=== PATIENT | female | born 1945 | race Caucasian/White ===

== ENCOUNTER 2016-07-19 22:30 | Emergency (ER) | payer MEDICARE, OTHER ==
[~2016-07-19 22:30] MED LIST: ASPI-973 PO; CHOL-9 PO; DILT240C89 PO; GLPZ5T PO; IBUP800T28 PO; INSLIS SUBQ; INSU100I18 SUBQ; INSU100V7 SUBQ; LOSA50TA37 PO; METF500T4 PO; SPIR50TA2 PO
[2016-07-19 22:39] VITALS: BP 159/66; PULSE 56; RESP 18; O2SAT 98
[2016-07-19 23:14] LABS: Mean Corpuscular Hemoglobin 30.6 pg (27.0-35.0)
[2016-07-19 23:18] LABS: Mean Corpuscular Volume 92.2 fL (81-100); Platelet Count 254 bil/L (150-400)
[2016-07-19 23:35] LABS: BASOPHILS % (AUTO) 0 % (0-3); EOSINOPHILS % (AUTO) 1 % (0-5); MONOCYTES % (AUTO) 2 % (4-12); NEUTROPHILS % (AUTO) 60 % (40-74)
[2016-07-19 23:41] LABS: Magnesium 1.6 mg/dL (1.6-2.6)
--- NOTE | 2016-07-20 00:08 | ED.REPORT ---
HPI-Abd Pain F 40 and Over Date of Service Jul 20, 2016 ED Provider: Manuel Schuler MD Patient is a 70 year old female with a history of CLL, diabetes mellitus, hypertension, and renal insufficiency who presents to the ED complaining of abdominal pain onset 5pm this evening. Her pain is most severe in her lower abdomen and radiates into her back. She reports associated chills, subjective fever, and nausea but denies vomiting, diarrhea, hematochezia, or dysuria. She reports prior appendectomy but denies a history of cholecystectomy or other abdominal surgeries. The patient reports a history of diverticulosis but denies diverticulitis. Nursing Notes Stated Complaint: ABDOMINAL PAIN AND BACK PAIN Chief Complaint: Female Abdominal Pain Nursing Notes Reviewed: Yes Allergies: Coded Allergies: No Known Allergies (Verified Allergy, Unknown, 07/19/16) Scheduled Aspirin (Aspirin) 81 Mg Tablet 81 MG PO DAILY Cholecalciferol (Vitamin D3) (Vitamin D3) 10,000 Unit Tablet 10,000 UNIT PO DAILY Diltiazem ER (Diltiazem ER) 240 Mg Cap.er.24h 240 MG PO BID Glipizide (Glipizide) 5 Mg Tablet 5 MG PO AM Insulin Glargine (Lantus U100 Insulin Vial) 100 Unit/Ml Vial 30 UNIT SUBQ QPM- INSULIN Insulin Human Lispro (HumaLOG U100 Insulin Vial) 100 Unit/Ml Unit 4 UNIT SUBQ TID-INSULIN Blood Sugar Lispro Correction <151 0 units 151-175 1 unit 176-200 2 units 201-225 3 units 226-250 4 units 251-275 5 units 276-300 6 units 301-325 7 units 326-350 8 units 351-375 9 units 376-400 10 units >400 12 units Check blood sugars before meals and at bedtime. Use correction factor only before meals. Insulin Lispro (HumaLOG U100 Insulin Pen) 100 Unit/1 Ml Insuln.pen 0 SUBQ SLIDING SCALE Blood Sugar Lispro Correction <151 0 units 151-175 1 unit 176-200 2 units 201-225 3 units 226-250 4 units 251-275 5 units 276-300 6 units 301-325 7 units 326-350 8 units 351-375 9 units 376-400 10 units >400 12 units Check blood sugars before meals and at bedtime. Use correction factor only before meals. Losartan Potassium (Losartan Potassium) 50 Mg Tablet 50 MG PO DAILY Metformin (Metformin) 500 Mg Tablet 500 MG PO BID Spironolactone (Spironolactone) 50 Mg Tablet 50 MG PO DAILY Scheduled PRN Ibuprofen (Ibuprofen) 800 Mg Tablet 800 MG PO PRN PRN PRN For Pain General Time Seen by MD: 00:06 Chief Complaint Abdominal pain Hx Obtained From: Patient Arrived By: Walk-in Sudden in Onset?: No Onset Occurred: 5 - 8 hours ago Symptom Duration: Since onset Progression since Onset: Gradually worsening Location: : Abdomen lower Quality: Painful Severity: Current: Moderate Severity: Maximum: Severe Recent Healthcare: No recent doctor visit, No recent hospitalization Similar Sx Previous: No Past Medical History Past Medical History 1. 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 2. Diabetes. 3. Hypertension. 4. Renal insufficiency. 5. Depression. 6. Hospitalized May 2011 for a presyncopal episode with rhabdomyolysis, possibly a complication of hypoglycemia. 7. Hypertension, controlled. 8. History of UTI with sepsis associated with that. 9. Kidney stones Past Surgical History Reports: Appendectomy, Tonsillectomy, Denies: Cholecystectomy Smoking History Never Smoker Social History Other Social History: Good social support, Local resident Ambulatory Status Independent Review of Systems Constitutional: Reports: Chills, Fever (subjective) GI: Reports: Abdominal pain, Nausea, Denies: Bloody/tarry stool, Diarrhea, Hematochezia, Vomiting Female: Denies: Dysuria Musculoskeletal: Reports: Back pain Complete sys rev & neg: except as marked. Physical Exam Vital Signs Vital Signs (First) Date Time Temp Pulse Resp B/P Pulse Ox O2 Delivery O2 Flow Rate FiO2 07/19/16 22:39 36.2 56 18 159/66 98 Room Air Initial VS: Reviewed, Vital signs normal Head / Eyes: Atraumatic, Normocephalic, PERRL ENT: Conjunctiva normal, No scleral icterus Neck: Supple, Full range of motion Extremities: Vascular intact, Neuro intact, No swelling Skin: Warm, Dry, No cyanosis Neurologic: Alert, Oriented, Nonfocal Psychiatric: Mood/affect normal, Behavior normal, Normal thought content General/Constitutional: Awake, Alert Appearance / Presentation: Positive: In pain, Pale Respiratory / Chest: Breath sounds NL, Breath sounds = bilat, No respiratory distress, No rales, No rhonchi, No wheezing Cardiovascular: Heart rate NL, Regular rhythm, Heart sounds NL Abdomen: Soft, BS normoactive Tenderness/Guarding/Rebound: Positive: Tender diffuse Bowel Sounds / Distention: Negative: Bowel sounds tympanitic Back: No CVA tenderness Interpretation & Diagnostics Lab Results Interpretation Result Diagram: 07/19/16 2300 07/19/16 2300 Test 07/19/16 23:00 07/19/16 23:06 White Blood Count 26.8th/mm3 (3.8-10.1) Red Blood Count 4.74mil/mm3 (3.90-5.20) Hemoglobin 14.5g/dL (12.0-15.6) Hematocrit 43.7% (35.0-46.0) Mean Corpuscular Volume 92.2fL (81-100) Mean Corpuscular Hemoglobin 30.6pg (27.0-35.0) Mean Corpuscular Hemoglobin Concent 33.2% (32.0-37.0) Red Cell Distribution Width 13.9% (12.3-15.4) Platelet Count 254bil/L (150-400) Neutrophils (%) (Auto) 60% (40-74) Lymphocytes (%) (Auto) 32% (14-46) Monocytes (%) (Auto) 2% (4-12) Eosinophils (%) (Auto) 1% (0-5) Basophils (%) (Auto) 0% (0-3) Band Neutrophils % 5% (1-5) Sodium Level 137mEq/L (134-144) Potassium Level 4.6mEq/L (3.5-5.2) Chloride Level 96mEq/L (97-108) Carbon Dioxide Level 22mmol/L (18-29) Blood Urea Nitrogen 32mg/dL (8-27) Creatinine 0.87mg/dL (0.57-1.00) Estimat Glomerular Filtration Rate 92mL/min (>59) Glucose Level 219mg/dL (60-99) Lactic Acid Level 0.2mmol/L (0.4-2.0) Calcium Level 10.0mg/dL (8.5-10.1) Magnesium Level 1.6mg/dL (1.6-2.6) Total Bilirubin 0.2mg/dL (0.0-1.2) Aspartate Amino Transf (AST/SGOT) 21U/L (0-50) Alanine Aminotransferase (ALT/SGPT) 19U/L (0-32) Alkaline Phosphatase 60U/L (25-165) Total Protein 7.2g/dL (6.4-8.4) Albumin 4.2g/dL (3.4-5.0) Lipase 28U/L (13-60) Hold Guerra Top Tube Received (Received) Hold Urine Received (Received) Lab Results Interpretation: Elevated white count related to chronic leukemia. Procedures Lab Results Interpretation Result Diagram: 07/19/16 2300 07/19/16 2300 Test 07/19/16 23:00 07/19/16 23:06 White Blood Count 26.8th/mm3 (3.8-10.1) Red Blood Count 4.74mil/mm3 (3.90-5.20) Hemoglobin 14.5g/dL (12.0-15.6) Hematocrit 43.7% (35.0-46.0) Mean Corpuscular Volume 92.2fL (81-100) Mean Corpuscular Hemoglobin 30.6pg (27.0-35.0) Mean Corpuscular Hemoglobin Concent 33.2% (32.0-37.0) Red Cell Distribution Width 13.9% (12.3-15.4) Platelet Count 254bil/L (150-400) Neutrophils (%) (Auto) 60% (40-74) Lymphocytes (%) (Auto) 32% (14-46) Monocytes (%) (Auto) 2% (4-12) Eosinophils (%) (Auto) 1% (0-5) Basophils (%) (Auto) 0% (0-3) Band Neutrophils % 5% (1-5) Sodium Level 137mEq/L (134-144) Potassium Level 4.6mEq/L (3.5-5.2) Chloride Level 96mEq/L (97-108) Carbon Dioxide Level 22mmol/L (18-29) Blood Urea Nitrogen 32mg/dL (8-27) Creatinine 0.87mg/dL (0.57-1.00) Estimat Glomerular Filtration Rate 92mL/min (>59) Glucose Level 219mg/dL (60-99) Lactic Acid Level 0.2mmol/L (0.4-2.0) Calcium Level 10.0mg/dL (8.5-10.1) Magnesium Level 1.6mg/dL (1.6-2.6) Total Bilirubin 0.2mg/dL (0.0-1.2) Aspartate Amino Transf (AST/SGOT) 21U/L (0-50) Alanine Aminotransferase (ALT/SGPT) 19U/L (0-32) Alkaline Phosphatase 60U/L (25-165) Total Protein 7.2g/dL (6.4-8.4) Albumin 4.2g/dL (3.4-5.0) Lipase 28U/L (13-60) Hold Guerra Top Tube Received (Received) Hold Urine Received (Received) CT Abd / Pelvis Interpretation CONCLUSION: Suggestion of wall thickening of the small bowel left mid abdomen nondistention versus acute enteritis. Colonic diverticulosis without evidence of acute diverticulitis. Radiologist: Aurora Miller MD 07/20/2016 - 2:59:56 AM PDT Study type: Abdominal CT IV contrast Interpretation / Wet Read by: Interpret - Radiologist Re-Eval/Medical Decision Med Decision/Clinical Course 70-year-old female with severe abdominal pain. Her white count is elevated but it is in the same range that it is chronically. CT scan shows nonspecific enteritis. She has had no diarrhea or fever. Case was discussed with Dr. Leary. She will be discharged home. If she develops diarrhea she will need further evaluation with stool sampling. She is being discharged in a much improved condition. Source of Hx: Old records Re-Evaluation/Progress #1: Time of Eval: 03:31 Re-Evaluation/Progress Note: Rechecked the patient. Discussed the results of her CT scan and labs. Will discuss the results with the internal medicine physician. Re-Evaluation/Progress #2: Time of Eval: 04:00 Re-Evaluation/Progress Note: Patient understands and agrees with the plan to be discharged home. Discharge instructions and follow-up discussed. All questions were addressed. Return to the ED warnings given. Consultation : Referral / Consult Name: Delmy Leary DO Consulted With: Hospitalist Call Returned at: 03:45 Internet Marketing Manager: Agrees with plan Note: Spoke with Dr. Leary about the patient's case. She states not to treat enteritis unless she is toxic. This means diarrhea or bloody stool. Treat based on culture. Counseled Regarding: Diagnosis, Lab results, Need for follow-up, When/why to return to ED Discharge & Departure Primary Impression: Enteritis Disposition: Home Discharge Condition All VS Reviewed: Yes Condition: Stable Patient Instructions: Gastroenteritis (ED) Additional Instructions: Your CT scan shows evidence of enteritis, nonspecific infection or inflammation of the intestine. If you become toxic with fever or if you develop diarrhea, especially bloody diarrhea, then you will need further evaluation including stool culture. Antibiotics are only helpful in some causes of this and may in fact be harmful, so we need a diarrheal stool diagnosis before starting antibiotics. Follow up with Dr. sims on Friday as needed or return to the emergency room over the weekend. Call me at [phone] between the hours of 9 PM and 6 AM for the next couple of nights if you have any concerns or questions. Referrals: Juani Desai MD (PCP) Scribe Attestation Portions of this note were transcribed by Kamila Adler. I, Dr. Schuler personally performed the history, physical exam and medical decision-making; I reviewed and confirmed the accuracy of the information in the transcribed note. Signed by: Gracie Sierra, 07/19/2016 0519 copies to: Juani Desai MD, Howard L MD Jul 20, 2016 00:08 Kamila Adler Jul 20, 2016 00:19
[2016-07-20] MEDS ORDERED: 0.9% Sodium Chloride 1,000 ML IV ONE (00:10)
[2016-07-20] MEDS ORDERED: Ondansetron 2 mg/mL 2 mL Inj IV PRN (00:10)
[2016-07-20] MEDS: HYDROmorphone 0.5 mg/0.5 mL iSecure Syringe IVPUSH PRN ×2 (00:23→01:14)
[2016-07-20 04:19] VITALS: BP 137/69; PULSE 68; RESP 17; O2SAT 96
--- NOTE | 2016-07-20 06:27 | DRSVH ---
PROCEDURE: CT ABDOMEN AND PELVIS WITH CONTRAST ([id number]) INDICATIONS: Severe Abd pain, WBC 26,800 TECHNIQUE: After the administration of intravenous contrast, 5 mm thick sections acquired from the diaphragm to the symphysis. 5 mm coronal and sagittal reformats were acquired. For radiation dose reduction, the following was used: automated exposure control, adjustment of mA and/or kV according to patient raul guerra. COMPARISON: [facility], CT, KUB - CT ([facility]), 04/24/2010, 19:35. FINDINGS: Image quality: Excellent. ABDOMEN: Lung bases: Lung bases are clear. Heart size is normal. Solid organs: Liver and spleen are normal in size and enhancement. Gallbladder is unremarkable. Bi liary system is non dilated. Pancreas enhances normally. No adrenal nodules. Kidneys demonstrate n ormal size and enhancement, without hydronephrosis. Peritoneum and bowel: Bowel loops demonstrate normal wall thickness and caliber. No free fluid or a ir. Colonic diverticula are present. Surgical changes are present at the rectosigmoid junction. Ther e is normal appearance of small bowel thickening noted in the distal segment. Nodes and vessels: No retroperitoneal or mesenteric adenopathy by size criteria. Aorta and inferior vena cava are normal in size. Miscellaneous: No ventral hernias. PELVIS: Genitourinary: Bladder wall thickness is normal. Miscellaneous: No inguinal hernias or adenopathy. Bones: No suspicious bony lesions. No vertebral body compression fractures. IMPRESSION: 1. Minimal appearance of questionable small bowel thickening within the mid abdomen. This could repre sent enteritis versus incomplete distention. 2. Diverticulosis. Dictated by: Shawanda Chowdhury M.D. on 07/20/2016 at 6:21 Approved by: Shawanda Chowdhury M.D. on 07/20/2016 at 6:26
== END 2016-07-20 04:03 | disposition home or self-care (01) ==
LOC: SED 22:30
DX: K52.9 Noninfective gastroenteritis and colitis, unspecified (principal); I10 Essential (primary) hypertension; E11.9 Type 2 diabetes mellitus without complications; Z79.4 Long term (current) use of insulin; Z79.82 Long term (current) use of aspirin; Z79.84 Long term (current) use of oral hypoglycemic drugs; Z90.49 Acquired absence of other specified parts of digestive tract
CPT/HCPCS: 36415; 74177; 80053; 83605; 83690; 83735; 85007; 85025; 87040; 96361; 96374; 96375; 99285; J1170; J2405; J7030; Q9967

== ENCOUNTER 2016-12-03 02:12 | Inpatient (IN) | payer MEDICARE, OTHER ==
[~2016-12-03] VITALS: Ht 167.6 cm; Wt 67.2 kg
[2016-12-03] VITALS (10 sets, daily range): BP systolic 97–158; BP diastolic 42–73; PULSE 50–93; RESP 16–22; O2SAT 93–100
[2016-12-03 02:32] LABS: Mean Corpuscular Hemoglobin 30.5 pg (27.0-35.0); Mean Corpuscular Volume 90.9 fL (81-100); Platelet Count 257 bil/L (150-400)
--- NOTE | 2016-12-03 02:35 | ED.REPORT ---
HPI-Abd Pain F 40 and Over Date of Service Dec 03, 2016 ED Provider: Gustavo Mitchell MD Pt is a 71 y/o female with a history of chronic lymphocytic leukemia, DM, hypertension, hypertension, and renal insufficiency who presents to the ED via EMS c/o diffuse abdominal pain onset 2300 last night. She states she has had similar symptoms previously, and rates the severity of her pain now at 9/10. Additional symptoms include dark stool for 3 days and increased gas. She denies fever, chills, diarrhea, melena, hematuria, or hematochezia. Nursing Notes Stated Complaint: ABDOMINAL PAIN Chief Complaint: Female Abdominal Pain Nursing Notes Reviewed: Yes Allergies: Coded Allergies: No Known Allergies (Verified Allergy, Unknown, 12/03/16) Scheduled Aspirin (Aspirin) 81 Mg Tablet 81 MG PO DAILY Cholecalciferol (Vitamin D3) (Vitamin D3) 10,000 Unit Tablet 10,000 UNIT PO DAILY Diltiazem ER (Diltiazem ER) 240 Mg Cap.er.24h 240 MG PO BID Glipizide (Glipizide) 5 Mg Tablet 5 MG PO AM Insulin Glargine (Lantus U100 Insulin Vial) 100 Unit/Ml Vial 30 UNIT SUBQ QPM- INSULIN Insulin Human Lispro (HumaLOG U100 Insulin Vial) 100 Unit/Ml Unit 4 UNIT SUBQ TID-INSULIN Blood Sugar Lispro Correction <151 0 units 151-175 1 unit 176-200 2 units 201-225 3 units 226-250 4 units 251-275 5 units 276-300 6 units 301-325 7 units 326-350 8 units 351-375 9 units 376-400 10 units >400 12 units Check blood sugars before meals and at bedtime. Use correction factor only before meals. Insulin Lispro (HumaLOG U100 Insulin Pen) 100 Unit/1 Ml Insuln.pen 0 SUBQ SLIDING SCALE Blood Sugar Lispro Correction <151 0 units 151-175 1 unit 176-200 2 units 201-225 3 units 226-250 4 units 251-275 5 units 276-300 6 units 301-325 7 units 326-350 8 units 351-375 9 units 376-400 10 units >400 12 units Check blood sugars before meals and at bedtime. Use correction factor only before meals. Losartan Potassium (Losartan Potassium) 50 Mg Tablet 50 MG PO DAILY Metformin (Metformin) 500 Mg Tablet 500 MG PO BID Spironolactone (Spironolactone) 50 Mg Tablet 50 MG PO DAILY Scheduled PRN Ibuprofen (Ibuprofen) 800 Mg Tablet 800 MG PO PRN PRN PRN For Pain General Time Seen by MD: 02:34 Chief Complaint Abdominal pain Hx Obtained From: Patient Arrived By: Ambulance Sudden in Onset?: Yes Onset Occurred: 1 - 4 hours ago Symptom Duration: Constant Location: : Diffuse Quality: Painful Severity: Current: Pain level 9 out of 10 Severity: Maximum: Severe Recent Healthcare: Recent doctor visit Similar Sx Previous: Yes Past Medical History Past Medical History 1. 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 2. Diabetes. 3. Hypertension. 4. Renal insufficiency. 5. Depression. 6. Hospitalized May 2011 for a presyncopal episode with rhabdomyolysis, possibly a complication of hypoglycemia. 7. Hypertension, controlled. 8. History of UTI with sepsis associated with that. 9. Kidney stones Past Surgical History Reports: Appendectomy, Tonsillectomy Smoking History Never Smoker Social History Other Social History: Good social support, Local resident Ambulatory Status Independent Review of Systems Dark stool for 3 days Increased gas Constitutional: Denies: Chills, Fever GI: Reports: Abdominal pain, Denies: Diarrhea, Hematochezia, Melena Female: Denies: Hematuria Complete sys rev & neg: except as marked. Physical Exam Vital Signs Vital Signs (First) Date Time Temp Pulse Resp B/P Pulse Ox O2 Delivery O2 Flow Rate FiO2 12/03/16 02:19 36.4 50 16 158/47 98 Room Air Initial VS: Reviewed Head / Eyes: Atraumatic, Normocephalic Neck: Supple, Full range of motion Extremities: Vascular intact, Neuro intact, No swelling, No tenderness Skin: Warm, Dry, No cyanosis Neurologic: Alert, Oriented, Nonfocal Psychiatric: Mood/affect normal, Behavior normal, Normal thought content General/Constitutional: Awake, Alert Looks slightly dry Respiratory / Chest: Atraumatic, Breath sounds NL, Breath sounds = bilat, No respiratory distress Cardiovascular: Heart rate NL, Regular rhythm, Heart sounds NL Abdomen: Soft, BS normoactive Tenderness/Guarding/Rebound: Positive: Tender diffuse Back: Full range of motion, Non-tender Interpretation & Diagnostics Lab Results Interpretation Result Diagram: 12/03/16 0220 12/03/16 0220 Test 12/03/16 02:20 12/03/16 02:32 White Blood Count 22.6th/mm3 (3.8-10.1) Red Blood Count 4.63mil/mm3 (3.90-5.20) Hemoglobin 14.1g/dL (12.0-15.6) Hematocrit 42.1% (35.0-46.0) Mean Corpuscular Volume 90.9fL (81-100) Mean Corpuscular Hemoglobin 30.5pg (27.0-35.0) Mean Corpuscular Hemoglobin Concent 33.5% (32.0-37.0) Red Cell Distribution Width 13.8% (12.3-15.4) Platelet Count 257bil/L (150-400) Neutrophils (%) (Auto) 52% (40-74) Lymphocytes (%) (Auto) 35% (14-46) Monocytes (%) (Auto) 6% (4-12) Eosinophils (%) (Auto) 3% (0-5) Basophils (%) (Auto) 1% (0-3) Band Neutrophils % 2% (1-5) Hematology Comments Prothrombin Time 10.0sec (8.1-12.5) Prothromb Time International Ratio 0.94ratio Sodium Level 136mEq/L (134-144) Potassium Level 3.8mEq/L (3.5-5.2) Chloride Level 95mEq/L (97-108) Carbon Dioxide Level 22mmol/L (18-29) Blood Urea Nitrogen 24mg/dL (8-27) Creatinine 1.23mg/dL (0.57-1.00) Estimat Glomerular Filtration Rate 61mL/min (>59) Glucose Level 171mg/dL (60-99) Calcium Level 10.0mg/dL (8.5-10.1) Magnesium Level 1.8mg/dL (1.6-2.6) Total Bilirubin 0.3mg/dL (0.0-1.2) Aspartate Amino Transf (AST/SGOT) 19U/L (0-50) Alanine Aminotransferase (ALT/SGPT) 17U/L (0-32) Alkaline Phosphatase 53U/L (25-165) Total Protein 6.9g/dL (6.4-8.4) Albumin 4.1g/dL (3.4-5.0) Lipase 34U/L (13-60) Lactic Acid Level 1.2mmol/L (0.4-2.0) CT Abd / Pelvis Interpretation Conclusion: Lobulated gallbladder with areas of wall thickening. Ultrasound correlation is recommended. Mild extrahepatic biliary dilation, without an obstructing lesion seen. If there are clinical and labratory signs of biliary obstruction, an MRCP can be performed to further evaluate. Colonic diverticulosis without signs of diverticulitis. Study type: Abdominal CT IV contrast Interpretation / Wet Read by: Interpret - Radiologist Re-Eval/Medical Decision Med Decision/Clinical Course 71-year-old with CLL presents with an episode of abdominal pain in her upper abdomen. CT scanning shows a lobulated thickened gallbladder and dilatation of the common bile duct, but no dilatation of the pancreatic duct. No stone is seen definitively. LFTs are basically unremarkable. White count is elevated, with some bands noted. Unclear whether this is the result of infection or her underlying CLL. Begun with Zosyn pending culture. MRCP ordered for this morning. Ultrasound additionally will be helpful. Source of Hx: Old records Re-Evaluation/Progress : Time of Eval: 04:18 Re-Evaluation/Progress Note: Patient rechecked. Discussed plan for admission. Pt understands and agrees with plan. All questions addressed. Consultation : Referral / Consult Name: Ramon Romano MD Consulted With: Hospitalist Call Returned at: 05:00 [employer] Spray Unit Adjuster: Will see patient, Agrees with plan, Accepts admit Note: Discussed pt's case with hospitalist, Dr. Romano. He accepts admission. Counseled Regarding: Diagnosis, Lab results, Need for admission Discharge & Departure Primary Impression: Biliary colic Additional Impressions: CLL (chronic lymphocytic leukemia) Common bile duct dilatation Disposition: ADMITTED TO HOSPITAL Discharge Condition All VS Reviewed: Yes Condition: Stable Referrals: Juani Desai MD (PCP) Scribe Attestation Portions of this note were transcribed by Keli Metz. I, Dr. Mitchell, personally performed the history, physical exam and medical decision-making; I reviewed and confirmed the accuracy of the information in the transcribed note. copies to: Juani Desai MD, Christopher W MD Dec 03, 2016 02:35 Keli Metz Dec 03, 2016 02:42
[2016-12-03] MEDS ORDERED: 0.9% Sodium Chloride 1,000 ML IV ONE (02:37)
[2016-12-03] MEDS ORDERED: Ketorolac 15 mg/mL Inj IVPUSH ONE (02:40)
[2016-12-03] MEDS ORDERED: Ondansetron 2 mg/mL 2 mL Inj IVPUSH ONE (02:40)
[2016-12-03] MEDS ORDERED: HYDROmorphone 1 mg/mL Inj IVPUSH ONE (02:40)
[2016-12-03 02:48] LABS: BASOPHILS % (AUTO) 1 % (0-3); EOSINOPHILS % (AUTO) 3 % (0-5); MONOCYTES % (AUTO) 6 % (4-12); NEUTROPHILS % (AUTO) 52 % (40-74)
[2016-12-03 02:52] LABS: INR 0.94 ratio
[2016-12-03 03:11] LABS: Magnesium 1.8 mg/dL (1.6-2.6)
[2016-12-03] MEDS ORDERED: Piperacillin-Tazo 3.375 Gm Inj 3.375 GM in Dextrose 5% Minibag Plus 50 ML IV ONE (05:00)
[2016-12-03] MEDS ORDERED: Lactated Ringer's 1,000 ML IV SCH ×2 (05:02→15:31)
[2016-12-03] MEDS ORDERED: HYDROmorphone 1 mg/mL Inj IVPUSH PRN ×2 (05:05→15:35)
[2016-12-03] MEDS ORDERED: Ondansetron 2 mg/mL 2 mL Inj IVPUSH PRN ×3 (05:05→15:35)
[2016-12-03] MEDS ORDERED: Pantoprazole 40 mg ER24 Tablet PO SCH (07:30)
--- NOTE | 2016-12-03 07:50 | NUR ---
Arrival to Floor Patient arrives to [facility] from ED alert and oriented. Patent has some pain, but states that it is at a tolerable level. Denies nausea. Ordered IV fluids administered via patent left AC, care is ongoing.
[2016-12-03 08:37] LABS: APPEARANCE,URINE HAZY (CLEAR,HAZY); COLOR,URINE STRAW (YELLOW); OCCULT BLOOD,URINE TRACE (NEGATIVE); UROBILINOGEN,URINE NORMAL (NORMAL)
--- NOTE | 2016-12-03 10:48 | DRSVH ---
PROCEDURE: MR ABDOMEN MRCP INDICATIONS: duct dilatatiion, lobular gallbladder TECHNIQUE: Coronal HASTE through the abdomen, axial 2-D FLASH in- and [id number], and breath-hold T2 FSE with fat saturation through the biliary system and pancreas. Oblique coronal and axial thin-slice HASTE, radial thick-slab HASTE centered on the extrahepatic bile ducts. Intravenous secretin: Not requested. COMPARISON: [facility], CT, CT ABD PELVIS W CON, 12/03/2016, 3:41. FINDINGS: Image quality: Degraded by motion artifact. Pancreas and biliary system: There is mild intrahepatic biliary ductal dilatation. Common hepatic abhay t measures 11 mm. Common bile duct measures 13 mm. There is a probable 3 mm diameter filling defect w ithin the distal common bile duct. Pancreas is normal in morphology, without adjacent soft tissue rajesh ma. Pancreatic duct is normal in caliber, without developmental anomalies. Gallbladder demonstrates multiple calculi within its lumen, as well as wall thickening and pericholecystic fluid. Other solid organs: Liver and spleen are normal in size. No adrenal nodules. Both kidneys are norm al in size, without hydronephrosis. Nodes and vessels: No retroperitoneal or mesenteric adenopathy by size criteria. Aorta and inferior vena cava are normal in size. Bowel and peritoneum: Unenhanced bowel loops are normal in caliber. No free fluid. Lung bases: No basal pleural effusions. Heart size is normal. Bones and soft tissues: No ventral hernias. Bone marrow is of normal overall signal. IMPRESSION: 1. Cholelithiasis with evidence of cholecystitis. 2. Findings suggestive of a small distal common bile duct choledocholith associated with biliary duct al dilatation. Confirmation with ERCP or intraoperative cholangiography is recommended. 3. Findings discussed with Dr. Malloy 12.03.16 at 1045 hrs. Dictated by: Eloisa Echeverria M.D. on 12/03/2016 at 10:35 Approved by: Eloisa Echeverria M.D. on 12/03/2016 at 10:46
[2016-12-03] MEDS ORDERED: VIT1CAPS8 PO (11:32)
[2016-12-03] MEDS ORDERED: INSU100I18 SUBQ (11:36)
--- NOTE | 2016-12-03 12:00 | DRSVH ---
PROCEDURE: CT ABDOMEN AND PELVIS WITH CONTRAST ([id number]) INDICATIONS: abdo pain TECHNIQUE: After the administration of intravenous contrast, 5 mm thick sections acquired from the diaphragm to the symphysis. 5 mm coronal and sagittal reformats were acquired. For radiation dose reduction, the following was used: automated exposure control, adjustment of mA and/or kV according to patient austinz e. COMPARISON: [facility], MR, MR ABD MRCP, 12/03/2016, 9:28. [facility], CT, C T ABD PELVIS W CON, 07/20/2016, 2:18. FINDINGS: Image quality: Excellent. ABDOMEN: Lung bases: Lung bases are clear. Heart size is normal. Solid organs: Liver and spleen are normal in size. 3 mm splenic low attenuation focus is unchanged Gallbladder demonstrates a lobulated appearance with areas of mild wall thickening. Gallstones are fa intly visible. Extrahepatic biliary system demonstrates mild prominence measuring 14 mm. Pancreas en hances normally. There is mildly thickened and nodular appearance of the left adrenal gland, unchange d. Kidneys demonstrate normal size and enhancement, without hydronephrosis. Peritoneum and bowel: Bowel loops demonstrate normal wall thickness and caliber. No free fluid or a ir. Nodes and vessels: No retroperitoneal or mesenteric adenopathy by size criteria. Aorta and inferior vena cava are normal in size. Miscellaneous: No ventral hernias. PELVIS: Genitourinary: Bladder wall thickness is normal. Miscellaneous: No inguinal hernias or adenopathy. Bones: No suspicious bony lesions. No vertebral body compression fractures. IMPRESSION: 1. Lobulated gallbladder with areas of mild wall thickening and faintly visible stones. In addition, there is a mild prominence of extrahepatic biliary dilation measuring approximately 14 mm. No definit edson source of obstruction is identified. However, further evaluation with ultrasound/MRCP is recommen ded, as cholecystitis and/or choledocholithiasis cannot be excluded. Dictated by: Shawanda Chowdhury M.D. on 12/03/2016 at 11:51 Approved by: Shawanda Chowdhury M.D. on 12/03/2016 at 11:58
[2016-12-03] MEDS ORDERED: Alum-Mag Hydrox-Simeth 30 mL Suspension PO PRN (12:05)
[2016-12-03] MEDS ORDERED: Polyethylene Glycol (PEG) 17 Gm Powder PO PRN (12:05)
--- NOTE | 2016-12-03 12:08 | NUR ---
Case Management: [facility] delivered and charted. Signed original placed in chart. Copy left at bedside. Kathy Yung RN
[2016-12-03] MEDS ORDERED: Glycopyrrolate 0.2 MG/ML 1mL Inj ONE (12:26)
[2016-12-03] MEDS ORDERED: Rocuronium 10 mg/mL 5 mL Inj ONE (12:26)
[2016-12-03] MEDS ORDERED: Neostigmine 1 mg/mL 10 mL Inj ONE (12:26)
[2016-12-03] MEDS ORDERED: Ondansetron 2 mg/mL 2 mL Inj ONE (12:26)
[2016-12-03] MEDS ORDERED: fentaNYL-PF 50 mCg/mL 2 mL Inj ONE (12:26)
[2016-12-03] MEDS ORDERED: Propofol 10,000 mCg/mL 20 mL Inj ONE (12:26)
[2016-12-03 13:24] LABS: BASOPHILS % (AUTO) 0.1 % (0-3); EOSINOPHILS % (AUTO) 0 % (0-5); MONOCYTES % (AUTO) 6.4 % (4-12); Mean Corpuscular Volume 91.9 fL (81-100); NEUTROPHILS % (AUTO) 65.9 % (40-74); Platelet Count 211 bil/L (150-400)
--- NOTE | 2016-12-03 13:43 | NUR ---
Social Work: Initial Assessment/Multidisciplinary Rounds D: EMR reviewed. Please see Initial Assessment linked to this note for more information. Pt is a 71 year old female admitted [place] for cholecystitis biliary duct dilation per H&P. Pt's insurance is Medicare and [employer]. PCP is Juani Desai MD. Pt discussed in multidisciplinary rounds, surgery to consult. No SW needs identified at this time. SW met with pt at bedside to conduct initial assessment. Pt was alert and oriented x3. SW explained role and wrote phone number on white board. SW provided [facility] Discharge Planning Checklist and encouraged pt to contact SW for any discharge planning questions. Cynthia, daughter, is pt's designated personal banker for discharge planning. [facility] [place]. Pt is independent with all ADLs at baseline. Pt is active in the community and has good support from her daughter Cynthia. Pt uses no DME at baseline, but has a cane and walker available for use at discharge. Pt drives. Pt has no HH or SNF history. Pt has no LTC or VA benefits. Pt has DPOA on file, pt's daughter is DPOA. Pt is likely to d/c home with daughter to transport via POV. SW will continue to follow. A: Pt who is independent at baseline and has the capacity for self-care. P: Pt anticipated to discharge home with daughter to transport via POV when medically stable. No SW needs identified, no MD orders received at this time. SW will continue to follow for needs until time of discharge. LINDA Logan Addendum: 12/03/16 at 1349 by ELZA CHUN Amended: Links added.
--- NOTE | 2016-12-03 14:11 | PCM.HPMED ---
Subjective Date of Service Dec 03, 2016 Primary Provider: Admitting Physician: Ramon Romano MD Primary Care Physician: Juani Desai MD Attending Physician: Ramon Romano MD Chief Complaint: Abdominal pain History of Present Illness: 71 year old female with past medical history as noted below and notable for favorable prognosis chronic lymphocytic leukemia presents with acute onset of abdominal pain since about 11PM, about 6 hours after her dinner, last night. She denies any associated nausea, vomiting, fever, or chills with this. She has been having some loose stools in the past couple of days that has been occasionally melanotic appearing. The pain across her abdomen and to the right upper flank. She reports having lost about 20-30 lbs over the past 3 years and review of systems is otherwise negative. In the ED she has received a dose of IV Zosyn Review of Systems: Constitutional: Negative, except as otherwise mentioned in the history above. Ophthalmologic: Negative, except as otherwise mentioned in the history above. Cardiovascular: Negative, except as otherwise mentioned in the history above. Respiratory: Negative, except as otherwise mentioned in the history above. Gastrointestinal: Negative, except as otherwise mentioned in the history above. Genitourinary: Negative, except as otherwise mentioned in the history above. Musculoskeletal: Negative, except as otherwise mentioned in the history above. Neurological: Negative, except as otherwise mentioned in the history above. Psychiatric: Negative, except as otherwise mentioned in the history above. Hematologic/Lymphatic: Negative, except as otherwise mentioned in the history above. Allergic/Immunologic: Negative, except as otherwise mentioned in the history above. Allergies Coded Allergies: No Known Allergies (Verified Allergy, Unknown, 12/03/16) Home Medications Scheduled Aspirin (Aspirin) 81 Mg Tablet 81 MG PO DAILY Cholecalciferol (Vitamin D3) (Vitamin D3) 10,000 Unit Tablet 10,000 UNIT PO DAILY Diltiazem ER (Diltiazem ER) 240 Mg Cap.er.24h 240 MG PO BID Glipizide (Glipizide) 5 Mg Tablet 5 MG PO AM Insulin Glargine (Lantus U100 Insulin Vial) 100 Unit/Ml Vial 30 UNIT SUBQ QPM- INSULIN Insulin Human Lispro (HumaLOG U100 Insulin Vial) 100 Unit/Ml Unit 4 UNIT SUBQ TID-INSULIN Blood Sugar Lispro Correction <151 0 units 151-175 1 unit 176-200 2 units 201-225 3 units 226-250 4 units 251-275 5 units 276-300 6 units 301-325 7 units 326-350 8 units 351-375 9 units 376-400 10 units >400 12 units Check blood sugars before meals and at bedtime. Use correction factor only before meals. Insulin Lispro (HumaLOG U100 Insulin Pen) 100 Unit/1 Ml Insuln.pen 0 SUBQ SLIDING SCALE Blood Sugar Lispro Correction <151 0 units 151-175 1 unit 176-200 2 units 201-225 3 units 226-250 4 units 251-275 5 units 276-300 6 units 301-325 7 units 326-350 8 units 351-375 9 units 376-400 10 units >400 12 units Check blood sugars before meals and at bedtime. Use correction factor only before meals. Losartan Potassium (Losartan Potassium) 50 Mg Tablet 50 MG PO DAILY Metformin (Metformin) 500 Mg Tablet 500 MG PO BID Spironolactone (Spironolactone) 50 Mg Tablet 50 MG PO DAILY Scheduled PRN Ibuprofen (Ibuprofen) 800 Mg Tablet 800 MG PO PRN PRN PRN For Pain PMH 1. 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 2. Diabetes mellitus type II, Insulin dependent 3. Hypertension. 4. Renal insufficiency. 5. Depression. 6. Hospitalized May 2011 for a presyncopal episode with rhabdomyolysis, possibly a complication of hypoglycemia. 7. Hypertension, controlled. 8. History of UTI with sepsis associated with that. Family History Sister and mother with history of cancer Social History Hx Alcohol Use: No Hx Substance Use: No Hx Tobacco Use: No Smoking Status: Never Smoker Exam Vital Signs Vital Sign - Last Date Time Temp Pulse Resp B/P Pulse Ox O2 Delivery O2 Flow Rate FiO2 12/03/16 07:20 37.6 69 16 147/69 98 Room Air Intake and Output 12/02/16 12/02/16 12/03/16 Cumulative From/Thru 15:00 23:00 07:00 12/03/16 02:19 - 12/03/16 06:56 Intake Total 1050 ml 1050 ml Output Total 0 ml 0 ml Balance 1050 ml 1050 ml Intake Oral 0 ml 0 ml IV Total 1050 ml 1050 ml Output Urine Total 0 ml 0 ml # Bowel Movements 0 0 General: Alert, Oriented X3, Cooperative, No Acute Distress Head: Normal Eyes: PERRLA, EOMI, Scleral Anicteric Nose: Mucous Membr Moist/[place] Mouth: Mucous Membr Moist/[place] Neck: Supple Chest & Lungs: Chest Wall Normal, Clear to auscultation & percussion Cardiovascular: Regular Rate/Rhythm Pulses: NL carotid, radial, femoral, DP, PT Abdomen: Tender (mostly upper abdomen bilat), Non-distended, Normoactive bowel tones, Soft Extremities: No cyanosis/clubbing/edma bilat Skin: Other (no signficant ulcer/rash) Neurological: Grossly Neurologically Intact, Cranial Nerves 2-12 Intact, Normal Speech Additional Information: Psych: Calm, appropriate Lab and Diagnostics Result Diagram: 12/03/16 1308 12/03/16 1308 X-Rays, CTs and MRIs Date of Service: 12/03/16 0237 PROCEDURE: CT ABDOMEN AND PELVIS WITH CONTRAST (PNL-7102) IMPRESSION: 1. Lobulated gallbladder with areas of mild wall thickening and faintly visible stones. In addition, there is a mild prominence of extrahepatic biliary dilation measuring approximately 14 mm. No definitive source of obstruction is identified. However, further evaluation with ultrasound/MRCP is recommended, as cholecystitis and/or choledocholithiasis cannot be excluded. Dictated by: Shawanda Chowdhury M.D. on 12/03/2016 at 11:51 Approved by: Shawanda Chowdhury M.D. on 12/03/2016 at 11:58 Additional Diagnostics: Date of Service: 12/03/16 0502 PROCEDURE: MR ABDOMEN MRCP IMPRESSION: 1. Cholelithiasis with evidence of cholecystitis. 2. Findings suggestive of a small distal common bile duct choledocholith associated with biliary ductal dilatation. Confirmation with ERCP or intraoperative cholangiography is recommended. 3. Findings discussed with Dr. Malloy 12.03.16 at 1045 hrs. Dictated by: Eloisa Echeverria M.D. on 12/03/2016 at 10:35 Approved by: Eloisa Echeverria M.D. on 12/03/2016 at 10:46 Assessment & Plan 71 year old female with past medical history as noted below and notable for favorable prognosis chronic lymphocytic leukemia presents with acute onset of abdominal pain # Acute abdominal pain with imaging suggestive of acute cholecystitis - Continue with IV Zosyn started in ED - Supportive care including IV fluid and IV Morphine prn for pain control - MRCP result reviewed with radiology - Surgery consulted today. Will followup with recs - Discussed with GI consult as well but official consult is deferred pending further recommendations by surgery consult. # Diabetes mellitus type II, Insulin dependent - Continue with home dose Lantus - ISS while inpatient - HgA1C # History of Hypertension. Poorly controlled - Continue with home meds - Continue with pain control # Acute kidney injury, present on admission. - Resolved with IV fluids. - Avoid nephrotoxic meds # Chronic lymphocytic leukemia with 13 q deletion and indolent course. Presumed stable - She has associate leukocytosis which is chronic - Further followup as outpatient Expected length of hospital stay is greater than 2 midnights and likely 2-3 days GI Prophylaxis: Proton Pump Inhibitor VTE Prophylaxis: Sub-Q Heparin (Unfractionated) Resuscitation Status: Limited Interventions (OK to resuscitate but do NOT intubate. Discussed and verified with the patient) Time spent 60 min Jorge Malloy Dec 03, 2016 14:11
[2016-12-03] MEDS ORDERED: CeFAZolin Inj 2 GM in IV Premix 1 EACH IV ONE ×2 (14:20→14:40)
[2016-12-03] MEDS: Insulin LISPRO Low-Dose Scale SUBQ SCH ×2 (14:30→19:51)
[2016-12-03] MEDS ORDERED: Lactated Ringer's 1,000 ML IV ONE (15:17)
[2016-12-03] MEDS ORDERED: CeFAZolin 2 Gm/50 mL D5W Duplex Bag IV ONE (15:19)
[2016-12-03] MEDS ORDERED: Lactated Ringer's 500 ML IV PRN (15:31)
--- NOTE | 2016-12-03 15:31 | PCM.HPANE ---
Patient Data Surgeon Admitting Provider:Ramon Romano MD Attending Provider:Ramon Romano MD Primary Care Physician:Juani Desai MD Other Provider: Reason for Visit Cholecystitis Biliary Duct Dilation Ht/WT & BMI Height (Feet): 5 Height (Inches): 6.00 Weight (Kilograms): 67.200 Body Mass Index 23.81 Allergies Coded Allergies: No Known Allergies (Verified Allergy, Unknown, 12/03/16) Past Anesthesia History Anesthesia History: Denies:: Abnormal Airway, Anesthesia Reactions, Difficult Intubation, Fam Anesthesia Reaction, Fam Malignant Hypertherm, Malignant Hyperthermia Diabetes History Hx Diabetes?: Yes MRSA MRSA: No Medications Blood Thinner: Aspirin Reported Medications Insulin Lispro (HumaLOG U100 Insulin Pen)100 Unit/1 Ml Insuln.pen4 Unit SUBQ TIDAC #1 PENINJ Ref 0 Blood Sugar Lispro Correction <151 0 units 151-175 1 unit 176-200 2 units 201-225 3 units 226-250 4 units 251-275 5 units 276-300 6 units 301-325 7 units 326-350 8 units 351-375 9 units 376-400 10 units >400 12 units Check blood sugars before meals and at bedtime. Use correction factor only before meals. 12/03/16 Vit C/Vit E/Lutein/Min/[place]-3 (Ocuvite Softgel)1 Each Capsule1 Each PO DAILY 12/03/16 Metformin 500 Mg [id number] Mg PO BID Ref 0 04/07/15 Aspirin 81 Mg Yizjxh79 Mg PO DAILY Ref 0 04/07/15 Glipizide 5 Mg Tablet5 Mg PO AM 02/10/14 Insulin Glargine (Lantus U100 Insulin Vial)100 Unit/Ml Vial4 Unit SUBQ QPM- INSULIN Ref 0 02/10/14 Losartan Potassium 50 Mg Rkbxls86 Mg PO DAILY 02/10/14 Cholecalciferol (Vitamin D3) (Vitamin D3)10,000 Unit Ymxkql89,000 Unit PO DAILY 02/10/14 Ibuprofen 800 Mg Ilraqi559 Mg PO PRN PRN For Pain Ref 0 02/10/14 Diltiazem ER 240 Mg Cap.er.79l318 Mg PO BID Ref 0 02/10/14 Discontinued Reported Medications Insulin Lispro (HumaLOG U100 Insulin Pen)100 Unit/1 Ml Insuln.pen SUBQ SLIDING SCALE Ref 0 Blood Sugar Lispro Correction <151 0 units 151-175 1 unit 176-200 2 units 201-225 3 units 226-250 4 units 251-275 5 units 276-300 6 units 301-325 7 units 326-350 8 units 351-375 9 units 376-400 10 units >400 12 units Check blood sugars before meals and at bedtime. Use correction factor only before meals. 02/10/14 Insulin Human Lispro (HumaLOG U100 Insulin Vial)100 Unit/Ml Unit4 Unit SUBQ TID- INSULIN Ref 0 Blood Sugar Lispro Correction <151 0 units 151-175 1 unit 176-200 2 units 201-225 3 units 226-250 4 units 251-275 5 units 276-300 6 units 301-325 7 units 326-350 8 units 351-375 9 units 376-400 10 units >400 12 units Check blood sugars before meals and at bedtime. Use correction factor only before meals. 02/10/14 Spironolactone 50 Mg Hbtyni06 Mg PO DAILY Ref 0 02/10/14 History History of ENT Problems?: Yes HEENT History: Positive for:: Cataracts (Removed) Denies:: Abnormal Airway Difficult Intubation Dysphagia Glaucoma Hearing Problem Sinus Problem Denture Type: None Teeth Condition: Within Normal Limits Hx of Heart Problems?: Yes Cardiovascular History: Positive for:: Hypertension Denies:: AICD Cardiac Surgery Chest Pain Congestive Heart Failure Edema Heart Murmur Irregular Heartbeat Pacemaker Thrombophlebitis Valvular Heart Disease Hx of Respiratory Problem?: No Respiratory History: Denies:: Asthma COPD Chest Surgery Dyspnea Emphysema Hemoptysis Pneumonia Tuberculosis Hx Neurologic Problems?: No Neurological History: Denies:: Alzheimer's Disease CVA Dementia Dizziness Headaches Parkinson's Disease Seizures Hx of GI Problems?: No Hx of Problems?: No Genitourinary History: Positive for:: Kidney Stones (Last year but stone passed without surgery) Urinary Tract Infection Denies:: HX of Hemodialysis HX of Peritoneal Dialysis: No Female Hx: Denies:: Currently Endometriosis Pelvic Inflammatory Problems with Breasts? Hx Musculoskeletal Problems?: No Musculoskeletal History: Positive for:: Back Injury Denies:: Joint Replacement Musculoskeletal Trauma Hx of Psycho/Social Problems?: No Psycho Social History: Positive for:: Hx Depression Denies:: Anxiety Bipolar Disorder Suicide Attempt Hx Surgeries?: Yes (Appendectomy) Hx Any Other Health Problems?: Yes Other History: Positive for:: Cancer (CLL) Hospitalization (DM II) Denies:: Endocrine Disease Thyroid Disease History Blood Transfusions: Positive for:: Accept Blood Products? Denies:: Blood Transfuse Reaction Blood Transfusions Hx Diabetes: Yes Hx Alcohol Use: NoHx Substance Use: No Smoking Status: Never Smoker Stop/Bang Treated for Sleep Apnea?: No Do You Have a CPAP Machine?: No S-Snoring: Do You Snore Loudly: No T-Tired: feel tired, fatigued: No O-Obsered: Observed not breath: No P-Blood Pressure: treated: Yes B- Body Mass Index > 35 kg/m2: No A- Age over 50: Yes N- Neck Large Circumference: No G- Gender Male: No LILIANE Total Score: 1 Risk Assessment Category Category 1A: Patient has history of documented sleep apnea, and HAS NOT received any narcotic, sedative or anesthesia administration during this stay. Category 1B: Patient has history of documented sleep apnea, and HAS received any narcotic , sedative or anesthesia administration during this stay Category 2: Patient has SUSPECTED Obstructive Sleep Apnea, and HAS received any narcotic , sedative or anesthesia administration during this stay. Category 3: Patient has SUSPECTED Obstructive Sleep Apnea and HAS NOT received narcotic, sedative or anesthesia administration during this stay. Category 4: Outpatient in Procedural Areas with known sleep apnea or who screen positive for High Risk via the STOP/BANG questionnaire. Exam Exam Vital Signs Vital Signs Date Time Temp Pulse Resp B/P Pulse Ox O2 Delivery O2 Flow Rate FiO2 12/03/16 14:47 36.6 93 16 146/73 95 Room Air General Appearance: Alert, Oriented X3, Cooperative, Moderate Distress HEENT/AIRWAY: MP 2, Neck Movement (FROM, apperacne of overbite but TMD = 4FB), Mouth Opening (WNL) Lungs: Clear to Auscultation Heart: Exam Unremarkable Meds/Labs/Diagnostics Admission Meds Current Medications Sodium Chloride (Normal Saline) 1,000 ml @ 0 mls/hr Q0M ONCE IV Last administered on 12/03/16 02:37; Start 12/03/16 at 02:37; Stop 12/03/16 at 02:40 ; Status DC Ondansetron HCl (Zofran Inj) 4 mg ONCE ONCE IVPUSH Last administered on 02:40; Start 12/03/16 at 02:40; Stop 12/03/16 at 02:41; Status DC Ketorolac Tromethamine (Toradol Inj) 15 mg ONCE ONCE IVPUSH Last administered on 12/03/16 02:40; Start 12/03/16 at 02:40; Stop 12/03/16 at 02:41; Status DC Hydromorphone HCl 1 mg 1 mg Q15MIN ONCE IVPUSH Last administered on 12/03/16 02:40; Start 12/03/16 at 02:40; Stop 12/03/16 at 02:41; Status DC Piperacillin Sod/ Tazobactam Sod 3.375 gm/Dextrose/ Water 50 ml @ 100 mls/hr ONCE ONCE IV Last administered on 12/03/16 05:00; Start 12/03/16 at 05:00; Stop 12/03/16 at 05:29; Status DC Lactated Ringer's (Lr) 1,000 ml @ 100 mls/hr Q10H IV Last administered on 12/03 08:35; Start 12/03/16 at 05:02; Stop 12/03/16 at 12:04; Status DC Pantoprazole (Protonix) 40 mg DAILYAC PO Last administered on 12/03/16 10:40; Start 12/03/16 at 07:30; Stop 12/03/16 at 12:04; Status DC Valsartan (Valsartan) 80 mg DAILY PO Last administered on 12/03/16 13:37; Start 12/03/16 at 12:41 Labs Test 12/03/16 02:20 12/03/16 02:32 12/03/16 06:20 12/03/16 13:08 Band Neutrophils % 2% (1-5) Hematology Comments Prothrombin Time 10.0sec (8.1-12.5) Prothromb Time International Ratio 0.94ratio Magnesium Level 1.8mg/dL (1.6-2.6) Lactic Acid Level 1.2mmol/L (0.4-2.0) Urine Color Straw (YELLOW) Urine Appearance Hazy (CLEAR,HAZY) Urine pH 6.0 (5.0-8.0) Urine Specific Petty 1.020 (1.003-1.035) Urine Protein 100mg/dL (NEG,TRACE) Urine Glucose (UA) Negativemg/dL (NEGATIVE) Urine Ketones 15mg/dL (NEGATIVE) Urine Occult Blood Trace (NEGATIVE) Urine Nitrite Negative (NEGATIVE) Urine Bilirubin Negative (NEGATIVE) Urine Urobilinogen Normalmg/dL (NORMAL) Urine Leukocyte Esterase Trace (NEGATIVE) Urine RBC 0-2/hpf (0-2) Urine WBC 6-10/hpf (0-5) Urine Epithelial Cells Occasional/hpf (NONE-MOD) Urine Crystals None seen (NONE SEEN) Urine Bacteria Many/hpf (NONE-FEW) Urine Hyaline Casts None/lpf (NONE) Urine Granular Casts None seen (NONE SEEN) Urine Waxy Casts None seen (NONE SEEN) Urine Red Blood Cell Casts None seen (NONE SEEN) Urine White Blood Cell Casts None seen (NONE SEEN) Urine Mucus None seen (None Seen) Urine Trichomonas None seen (NONE SEEN) Urine Yeast None (NONE SEEN) Urinalysis Comment None Urine Culture Reflexed Indicated White Blood Count 28.5th/mm3 (3.8-10.1) Red Blood Count 4.42mil/mm3 (3.90-5.20) Hemoglobin 13.7g/dL (12.0-15.6) Hematocrit 40.6% (35.0-46.0) Mean Corpuscular Volume 91.9fL (81-100) Mean Corpuscular Hemoglobin 31.0pg (27.0-35.0) Mean Corpuscular Hemoglobin Concent 33.7% (32.0-37.0) Red Cell Distribution Width 13.7% (12.3-15.4) Platelet Count 211bil/L (150-400) Neutrophils (%) (Auto) 65.9% (40-74) Lymphocytes (%) (Auto) 27.2% (14-46) Monocytes (%) (Auto) 6.4% (4-12) Eosinophils (%) (Auto) 0% (0-5) Basophils (%) (Auto) 0.1% (0-3) Sodium Level 136mEq/L (134-144) Potassium Level 4.2mEq/L (3.5-5.2) Chloride Level 97mEq/L (97-108) Carbon Dioxide Level 22mmol/L (18-29) Blood Urea Nitrogen 19mg/dL (8-27) Creatinine 0.98mg/dL (0.57-1.00) Estimat Glomerular Filtration Rate 80mL/min (>59) Glucose Level 173mg/dL (60-99) Calcium Level 9.7mg/dL (8.5-10.1) Total Bilirubin 0.5mg/dL (0.0-1.2) Aspartate Amino Transf (AST/SGOT) 25U/L (0-50) Alanine Aminotransferase (ALT/SGPT) 23U/L (0-32) Alkaline Phosphatase 52U/L (25-165) Total Protein 6.5g/dL (6.4-8.4) Albumin 4.0g/dL (3.4-5.0) Lipase 28U/L (13-60) Plan Impression Patient chart reviewed, patient interviewed and anesthestic plan with risks, benefits, and alternatives discussed, and informed consent obtained. ASA Physical Status: ASA2 Mod Systemic Disease Anesthetic Plan: GA Bene/Risks/Altern/Consents: Yes HP Complete Prior to Induction: Yes Ryan Hirsch MD Dec 03, 2016 15:31
[2016-12-03] MEDS ORDERED: fentaNYL-PF 50 mCg/mL 2 mL Inj IVPUSH PRN (15:35)
[2016-12-03] MEDS ORDERED: Atropine 0.4 mg/mL Inj IVPUSH PRN (15:35)
[2016-12-03] MEDS ORDERED: Phenylephrine 10,000 mCg/mL Inj IVPUSH PRN (15:35)
[2016-12-03] MEDS ORDERED: Dexamethasone 4 mg/mL Inj IVPUSH PRN (15:35)
[2016-12-03] MEDS ORDERED: hydrALAZINE 20 mg/mL Inj IVPUSH PRN (15:35)
[2016-12-03] MEDS ORDERED: EPHEDrine Sulfate 50 mg/mL Inj IVPUSH PRN (15:35)
[2016-12-03] MEDS ORDERED: Labetalol 5 mg/mL 20 mL Inj IV PRN (15:35)
[2016-12-03] MEDS ORDERED: Bupivacaine-MPF 0.5% 30 mL Inj INFILTRATE ONE (15:45)
--- NOTE | 2016-12-03 15:57 | CONS ---
[address] [address] CONSULTATION REPORT PATIENT: MABLE VARELA : 1945 MR#: [id number] ADMIT: 12/03/2016 JOB ID: [id number] DATE OF SERVICE: CHIEF COMPLAINT/IDENTIFICATION: Dr. Malloy has asked me to see this 71-year-old woman with possible symptomatic gallstones. HISTORY OF PRESENT ILLNESS: The patient presented to the emergency department early this morning/late last night with abdominal pain in the midepigastrium going to her back. This was similar to an episode that she had a month or two ago. She denies jaundice, acholic stool, or tea-colored urine. PAST MEDICAL HISTORY: CLL, diabetes, hypertension, renal insufficiency, depression, history of previous presyncope and rhabdomyolysis, history of kidney stones, status post appendectomy, status post tonsillectomy. MEDICATIONS: Aspirin, cholecalciferol, diltiazem, glipizide, insulin, losartan, metformin, spironolactone, p.r.n. ibuprofen. ALLERGIES: None. 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 FAMILY HISTORY/REVIEW OF SYSTEMS: Noncontributory/negative per admission history and physical. PHYSICAL EXAMINATION: A slender woman in no acute distress. BMI is 23. Pulse this morning was 69 and this afternoon is 93. T-max is 37.6. Blood pressure is within normal limits. Room air saturation is 95%. Her sclerae are clear. Neck is supple. Breasts are not examined. Lungs are clear. Heart sounds are regular. She has mild right upper quadrant tenderness to palpation. LABORATORIES: Her admission white count was 22.6 and repeat today is 28.5, with a fair amount of neutrophils. Platelet count is 211. Hematocrit is 40, down from 42 yesterday with hydration. Her chemistries are normal. Glucose is mildly elevated at 173. LFTs last night and again this morning were normal. Lipase last night and again this afternoon is normal. IMAGING: She had an abdominal CT last night and then later in the morning had an MRCP with findings consistent with cholecystitis, dilated common duct to 14 mm, and a possible 3 mm common duct stone in the distal common duct. IMPRESSION AND PLAN: A 71-year-old woman that I believe has cholecystitis/symptomatic gallstones rather than cholangitis. This distinction is important as the latter would prompt a trip to the GI suite for an ERCP rather than going to the operating room. GI has been consulted but will be unable to see her until later in the day. I discussed the case with them. It is possible that she has passed a common duct stone or this 3 mm stone is ball valving, though I am surprised that she has not been jaundiced nor had any elevated bilirubin. I think in the interest of moving her care along, we should go ahead and do a laparoscopic cholecystectomy and intraoperative cholangiogram today. I think her elevated white count is primarily due to her CLL. I discussed risks, benefits, possible complications, options for further workup prior to intervention, and my recommendation is to proceed with a laparoscopic cholecystectomy with cholangiogram today. She would like to proceed. She has been n.p.o. all day except for sips of water and we will go later on this afternoon.
[2016-12-03] MEDS: Piperacillin-Tazo 3.375 Gm Inj 3.375 GM in Dextrose 5% Minibag Plus 50 ML IV SCH ×2 (16:30→23:51)
[2016-12-03] MEDS: Heparin 5,000 Unit/mL Inj SUBQ SCH ×2 (16:30→23:54)
[2016-12-03] MEDS ORDERED: Insulin Human REGular 300 Unit/3 mL Inj SUBQ SCH (17:00)
--- NOTE | 2016-12-03 17:35 | DRSVH ---
PROCEDURE: X-RAY OPERATIVE CHOLANGIOGRAM ([id number]) INDICATIONS: CHOLECYSTITIS COMPARISON: None. FINDINGS: Biliary ducts: The surgeon injected contrast into the biliary ducts after cannulation of the cystic duct stump. Visualized intra- and extrahepatic bile ducts are normal in caliber, without strictures. No large intraluminal filling defects to suggest retained ductal stones. Submillimeter filling defe cts are present at the ampulla. No evidence for iatrogenic ductal injury. Duodenum: Contrast flows promptly through the sphincter of Oddi into the duodenum, which appears nor mal in caliber. IMPRESSION: Submillimeter filling defects at the ampulla suggesting retained biliary sludge. Otherwis e unremarkable intraoperative cholangiogram. Dictated by: Zenobia Nunez M.D. on 12/03/2016 at 17:32 Approved by: Zenobia Nunez M.D. on 12/03/2016 at 17:34
--- NOTE | 2016-12-03 17:38 | NUR ---
Abdominal Pain, Off to Surgery Patient continues to have some abdominal pain this shift. Pain is well controlled with non-narcotic pain medication at this time. Patient off floor to OR. At time of transfer patient alert and oriented, denying pain or nausea. Anticipate return to floor.
--- NOTE | 2016-12-03 17:45 | PCM.SURGPO ---
Immediate Operative Note Date of Surgery: Dec 03, 2016 Pre Operative Diagnosis Acute cholecystitis Post Operative Diagnosis Possible choledocholithiasis, acute cholecystitis Procedure Laparoscopic cholecystectomy with intraoperative cholangiogram Surgeon and Bacon Skin Lifter Surgeon: Alexander Frye MD Assistants: Tuyet Mcintosh MD and Sanjay BENNETT Findings Marked acute on chronic inflammation of the gallbladder. Intraoperative cholangiogram with mildly dilated common bile duct and possible small non obstructing small distal common bile duct stone but with good filling of contrast into the duodenum and bilateral intrahepatic biliary tree. Complications There were no periprocedural complications identified. Surgical Specimen Removed: Yes Specimen sent to Pathology: Yes Anesthetic Administered: GA Grafts, Implants: Other (VITA ) Output, Estimated Blood Loss: 30 Blood Admin during surgery: No Tuyet Mcintosh MD Dec 03, 2016 17:45
--- NOTE | 2016-12-03 18:25 | NUR ---
IV Abx IV Zosyn, Ancef not given due to previously being administered per CASTING ROOM OPERATOR.
--- NOTE | 2016-12-03 18:51 | PCM.ANEP1 ---
Post Anesthesia PACU Phase 1 Assessment Vital Signs Vital Signs Date Time Temp Pulse Resp B/P Pulse Ox O2 Delivery O2 Flow Rate FiO2 12/03/16 18:41 36.8 76 16 109/66 93 Room Air 12/03/16 18:11 80 20 114/48 94 Room Air 12/03/16 18:06 76 21 103/42 93 Room Air 6 12/03/16 17:58 82 22 102/44 100 Simple Mask 6 12/03/16 17:51 36.5 85 97/44 12/03/16 14:47 36.6 93 16 146/73 95 Room Air Anesthetic Administered: GA Level of Alertness: Awake, talking LASSITER's with Equal Strength: Yes Pain: Yes Pain Scale Score: 3 Nausea or Vomiting: No CV Function & Hydration Stable: Yes Airway Device: Oxygen Delivery: Room Air Lungs: Normal Air Movement PACU Phase 2 Assessment Complications: No Follow up Care: No Patient Instructions Provided: N/A Ryan Hirsch MD Dec 03, 2016 18:51
[2016-12-03] MEDS: Diltiazem CD 240 mg ER24 Capsule PO SCH (19:46)
[2016-12-03] MEDS: Insulin GLARgine 100 Unit/mL Syringe SUBQ SCH (21:42)
[2016-12-04 00:18] VITALS: BP 109/62; PULSE 82; RESP 16; O2SAT 94
[2016-12-04] MEDS: Insulin LISPRO Low-Dose Scale SUBQ SCH ×4 (02:30→22:00)
--- NOTE | 2016-12-04 03:56 | OP ---
[address] [address] OPERATIVE REPORT PATIENT: MABLE VARELA : 1945 MR#: [id number] ADMIT: 12/03/2016 JOB ID: [id number] DATE OF SURGERY: 12/03/2016 PREOPERATIVE DIAGNOSIS(ES): Cholecystitis. POSTOPERATIVE DIAGNOSIS(ES): Cholecystitis, possible choledocholithiasis. PROCEDURE: Laparoscopic cholecystectomy with intraoperative cholangiogram. SURGEON: Alexander Frye MD and Tuyet Mcintosh MD VISUAL EDUCATOR: Sanjay Colbert PA-C INDICATIONS: A 71-year-old woman with signs and symptoms consistent with cholecystitis. Preoperative workup included an MRCP that demonstrated a dilated common bile duct and possible 3 mm common bile duct stone. However, her liver function tests remain normal without elevation of the bilirubin. She is therefore brought to the operating room for laparoscopic cholecystectomy. FINDINGS: 1. Surgical assistance was required for camera operation and retraction. 2. The patient had marked acute and chronic inflammation in the gallbladder. 3. Intraoperative cholangiogram demonstrated good filling of a mildly dilated common duct, with good flow into the duodenum, with a possible common bile duct stone distally that was on the order of 2-3 mm. There was good filling of contrast into the duodenum and intrahepatic biliary tree retrograde. DESCRIPTION OF PROCEDURE: The patient was brought to the operating room. General anesthetic was administered. SCOAP protocol was followed. The abdomen was prepped and draped in sterile fashion. She received perioperative antibiotics. Surgical time-out was performed. We began due to her previous lower midline incision with a Veress needle in the lateral upper quadrant. After insufflation in the abdomen, we placed an optical trocar in the left upper quadrant. We then were able to visually place three additional ports safely, converting the midepigastric port to an 11 mm port. We could now see that the gallbladder was markedly inflamed, both acutely and chronically. We decompressed the gallbladder, took down some filmy adhesions of the greater omentum to the gallbladder. We retracted the gallbladder cephalad. Dissection was quite difficult and tedious, but we stayed close to the gallbladder, cystic duct junction, identifying the cystic duct, and placing a clip on the gallbladder side of the cystic duct right as it entered the gallbladder. We made a cystic duct incision, and actually note a number of gallstones and crank case oil, thickened bile out of the cystic duct, and placed our cholangiocatheter. We then obtained a cholangiogram which demonstrated a long cystic duct, normal intrahepatic biliary anatomy, mildly dilated common duct on the order of 12-13 mm, and a possible 2-3 mm common duct stone attached to the wall of the distal common duct without obstruction and good flow into the duodenum. We removed our cholangiocatheter, sealed the cystic duct with a single large Hem-o-nini clip, divided the cystic duct as it entered the gallbladder and then proceeded to dissect the gallbladder out of the liver bed. This was a tedious difficult dissection due to the amount of inflammation. Although we did not lose much blood, we did spill some stones and bile, all of which were either immediately pinked up with the stone group, but later removed through meticulous irrigation and suction. We eventually got the gallbladder out of the liver bed, leaving a few remnants of the gallbladder wall near the dome of the gallbladder attached to an inflamed liver bed. These were cauterized as well as the entire liver bed was cauterized for hemostasis. The specimen was removed in a bag. We then proceeded to scoop out blood clot, stones and stone debris. We now retracted the liver cephalad, the retroperitoneal structures posteriorly and then proceeded to do serial irrigation and suctioning, removing all stone debris and blood clot. We now inspected our clip which was intact. There was no evidence of bile leak from the liver bed. There was no bleeding. I elected to leave a 19-Thai round Corey-Morna drain in the liver bed and brought it out through the rightward incision. We now that let our CO2 out, removed our ports, closed the largest incision at the fascial level with 0 Vicryl, followed by subcuticular Monocryl and securing the drain at the skin with a nylon. The patient tolerated the procedure well, was extubated and transferred to the recovery room. JACKIE
[2016-12-04 04:59] VITALS: BP 112/67; PULSE 74; RESP 18; O2SAT 94
--- NOTE | 2016-12-04 05:05 | NUR ---
Pain/activity Pt reporting increased abdominal pain to 8/10, especially with activity. Pt only wanting to take Tylenol to control pain and pt reports this to be working and pain to be more tolerable at 4/10. Four lap site dressings are CDI. VITA drain with serosang output 40ml this shift. Pt tolerating fluids and alisa crackers so far. Up to BR with SBA and voiding no issues. SCDs are on.
[2016-12-04 07:14] LABS: BASOPHILS % (AUTO) 0.1 % (0-3); EOSINOPHILS % (AUTO) 0 % (0-5); MONOCYTES % (AUTO) 4.8 % (4-12); Mean Corpuscular Hemoglobin 30.3 pg (27.0-35.0); Mean Corpuscular Volume 93.6 fL (81-100); NEUTROPHILS % (AUTO) 63.3 % (40-74); Platelet Count 191 bil/L (150-400)
--- NOTE | 2016-12-04 07:49 | PCM.PNSURG ---
Subjective Date of Service: Dec 04, 2016 Date of Service: Dec 04, 2016 Visit Information: Reason for Visit Cholecystitis Biliary Duct Dilation Surgery/Surgery Date LAP MARIUSZ 12/03/16 Post-Op Day # 1 Date of Admission: Dec 03, 2016 at 05:55 Hospital Day # 1 Subjective: Pain was not great overnight but wants to avoid narcotics and feels like she can get by with tylenol alone. No N/V, no gas or BM yet. Voiding after surgery without retention, walking to bathroom without trouble. Happy to have operation behind her and motivated to work towards getting home soon. Wants to take some laps around the unit with her daughter when she arrives. Objective Vital Sign- Last 8 Hours Date Time Temp Pulse Resp B/P Pulse Ox O2 Delivery O2 Flow Rate FiO2 12/04/16 04:59 37.7 74 18 112/67 94 Room Air 12/04/16 00:18 36.7 82 16 109/62 94 Room Air Intake and Output- Last 8 Hour 12/04/16 Cumulative From/Thru 07:00 12/03/16 02:19 - 12/04/16 05:25 Intake Total 679 ml 2629 ml Output Total 390 ml 565 ml Balance 289 ml 2064 ml Intake Oral 550 ml 550 ml IV Total 129 ml 2079 ml Output Urine Total 350 ml 450 ml Drainage Total 40 ml 55 ml Estimated Blood Loss 60 ml # Bowel Movements 0 0 General: Alert, Oriented X3, Cooperative Lungs: Clear to Auscultation, Normal Air Movement Heart: Regular Rate/Rhythm Abdomen: Appropriately tender, Non-distended, Other (Port sites c/d/i, VITA drain with serosanguinous output to bulb suction. Hypoactive bowel tones.) Neuro: Grossly Neurologically Intact Catheters: None Result Diagram: 12/04/16 0635 12/03/16 1308 Lab & Micro Results: AM CMP is pending. Assessment & Plan Impression 71 yo F with acute cholecystitis and possible choledocholithiasis s/p laparoscopic cholecystectom with intraoperative cholangiogram. Trending LFT's to ensure no persistent choledocholithiasis as very small filling defect noticed on IOC but filling throughout the biliary system and duodenum was present. Problems: Plan Pain: Continue tylenol FEN/GI: Regular diet as tolerated, miralax daily ENDO: Close blood sugar control perioperatively HEME/ID: Recommend Zosyn for 48 hours, trend daily CBC and LFT's to ensure improvement given concern for possible choledocholithiasis WOUND: VITA to bulb suction, will remove prior to discharge home RENAL: Voiding independently MSK: Ambulate TID DISPO: Pending down trend in leukocytosis and transaminitis, tolerance of regular diet and improvement of abdominal pain VTE Prophylaxis: Sub-Q Heparin (Unfractionated) Resuscitation Status: Limited Interventions (OK to resuscitate but do NOT intubate. Discussed and verified with the patient) Tuyet Mcintosh MD Dec 04, 2016 07:49
[2016-12-04] MEDS: Heparin 5,000 Unit/mL Inj SUBQ SCH ×2 (08:10→16:14)
[2016-12-04] MEDS: Piperacillin-Tazo 3.375 Gm Inj 3.375 GM in Dextrose 5% Minibag Plus 50 ML IV SCH ×2 (08:10→16:16)
[2016-12-04] MEDS: Diltiazem CD 240 mg ER24 Capsule PO SCH ×2 (08:11→20:15)
--- NOTE | 2016-12-04 09:41 | PCM.PNSURG ---
Subjective Date of Service: Dec 04, 2016 Date of Service: Dec 04, 2016 Visit Information: Reason for Visit Cholecystitis Biliary Duct Dilation Surgery/Surgery Date LAP JAKY 12/03/16 Post-Op Day # 1 Date of Admission: Dec 03, 2016 at 05:55 Hospital Day # Subjective: Patient reports feeling well this am. Denies n/v/f/c/sob. Tolerating clears. Voiding well. No bm, passing flatus. Asks about discharge planning hoping for tomorrow... Postop General: No Complaints Gastrointestinal: Tolerating Oral Feedings, No N/V, Passing Flatus Postop Activity: Ambulate with Assist Objective Objective pleasant afebrile elderly female in no apparent distress. VITA in place with s/s output. Vital Sign- Last 8 Hours Date Time Temp Pulse Resp B/P Pulse Ox O2 Delivery O2 Flow Rate FiO2 12/04/16 04:59 37.7 74 18 112/67 94 Room Air Intake and Output- Last 8 Hour 12/04/16 Cumulative From/Thru 07:00 12/03/16 02:19 - 12/04/16 05:25 Intake Total 679 ml 2629 ml Output Total 390 ml 565 ml Balance 289 ml 2064 ml Intake Oral 550 ml 550 ml IV Total 129 ml 2079 ml Output Urine Total 350 ml 450 ml Drainage Total 40 ml 55 ml Estimated Blood Loss 60 ml # Bowel Movements 0 0 General: Alert, Cooperative, No Acute Distress Lungs: Clear to Auscultation Heart: Regular Rate/Rhythm Abdomen: Soft, Appropriately tender SURGICAL WOUND : Wound General Appearence: Steri Strips, Intact, No Erythema, Wound under dressing Dressing & Drainage Status: Minimal Wound Drainage Type: VITA Drain #1 (40 mL serosanguinous, with few clots stripped.) Extremities: Distal Pulses Palpable Neuro: Grossly Neurologically Intact, Normal Speech Result Diagram: 12/04/16 0635 12/04/16 0635 Diagnostics: PROCEDURE: X-RAY OPERATIVE CHOLANGIOGRAM ([id number]) INDICATIONS: CHOLECYSTITIS FINDINGS: Biliary ducts: The surgeon injected contrast into the biliary ducts after cannulation of the cystic duct stump. Visualized intra- and extrahepatic bile ducts are normal in caliber, without strictures. No large intraluminal filling defects to suggest retained ductal stones. Submillimeter filling defects are present at the ampulla. No evidence for iatrogenic ductal injury. Duodenum: Contrast flows promptly through the sphincter of Oddi into the duodenum, which appears normal in caliber. IMPRESSION: Submillimeter filling defects at the ampulla suggesting retained biliary sludge. Otherwise unremarkable intraoperative cholangiogra Assessment & Plan Impression Satisfactory postop course s/p lap jaky complicated by some leakage of gallstones and bile intraop requiring VITA drain placement. T. Bili remains nl at 6.7 with AST 67 and ALT 71. IOC essentially normal with evidence of biliary sludge only. Hx CLL with persistent leukocytosis POA type 2 DM Problems: (1) Diabetes Status: Acute ICD Code: E11.9 (2) CLL (chronic lymphocytic leukemia) Status: Acute ICD Code: C91.10 Plan Advance diet to carb controlled soft. Continue IV zosyn AM labs Ambulate VITA at least another day Should be ok to dc in 1-2 days Pain Management: Tylenol > opiods per patient request VTE Prophylaxis: Sub-Q Heparin (Unfractionated) Resuscitation Status: Limited Interventions (OK to resuscitate but do NOT intubate. Discussed and verified with the patient) Jim Irizarry PA-C Dec 04, 2016 09:41
[2016-12-04 10:00] VITALS: BP 128/74; PULSE 62; RESP 16; O2SAT 93
--- NOTE | 2016-12-04 11:19 | PCM.PNMED ---
Subjective Date of Service Dec 04, 2016 Subjective Says overall feeling "much better" denies any new issues/complaints. no nausea/ vomiting Exam Vital Signs Vital Sign - Last Date Time Temp Pulse Resp B/P Pulse Ox O2 Delivery O2 Flow Rate FiO2 12/04/16 10:00 36.6 62 16 128/74 93 Room Air 12/03/16 18:06 6 Intake and Output 12/03/16 12/03/16 12/04/16 Cumulative From/Thru 14:59 22:59 06:59 12/03/16 02:19 - 12/04/16 05:25 Intake Total 900 ml 679 ml 2629 ml Output Total 175 ml 390 ml 565 ml Balance 725 ml 289 ml 2064 ml Intake Oral 0 ml 550 ml 550 ml IV Total 900 ml 129 ml 2079 ml Output Urine Total 100 ml 350 ml 450 ml Drainage Total 15 ml 40 ml 55 ml Estimated Blood Loss 60 ml 60 ml # Bowel Movements 0 0 Exam General: Alert, Cooperative, No Acute Distress Head: Normal Eyes: Scleral Anicteric Nose: Mucous Membr Moist/[place]alford Mouth: Mucous Membr Moist/[place] Neck: Supple Chest & Lungs: Chest Wall Normal, Clear to auscultation bilat Cardiovascular: Regular Rate/Rhythm Pulses: NL DP, PT Abdomen: Tender , Non-distended, Normoactive bowel tones, Soft, VITA drain in place Extremities: No cyanosis/clubbing/edma bilat Neurological: Grossly Neurologically Intact, Cranial Nerves 2-12 Intact, Normal Speech Psych: Calm, appropriate IVs and Medications Medications Reviewed: Medications were reviewed in detail Lab and Diagnostics Result Diagram: 12/04/16 0635 12/04/16 0635 X-Rays, CTs and MRIs Date of Service: 12/03/16 0237 PROCEDURE: CT ABDOMEN AND PELVIS WITH CONTRAST ([id number]) IMPRESSION: 1. Lobulated gallbladder with areas of mild wall thickening and faintly visible stones. In addition, there is a mild prominence of extrahepatic biliary dilation measuring approximately 14 mm. No definitive source of obstruction is identified. However, further evaluation with ultrasound/MRCP is recommended, as cholecystitis and/or choledocholithiasis cannot be excluded. Dictated by: Shawanda Chowdhury M.D. on 12/03/2016 at 11:51 Approved by: Shawanda Cohwdhury M.D. on 12/03/2016 at 11:58 Additional Diagnostics Date of Service: 12/03/16 0502 PROCEDURE: MR ABDOMEN MRCP IMPRESSION: 1. Cholelithiasis with evidence of cholecystitis. 2. Findings suggestive of a small distal common bile duct choledocholith associated with biliary ductal dilatation. Confirmation with ERCP or intraoperative cholangiography is recommended. 3. Findings discussed with Dr. Malloy 12.03.16 at 1045 hrs. Dictated by: Eloisa Echeverria M.D. on 12/03/2016 at 10:35 Approved by: Eloisa Echeverria M.D. on 12/03/2016 at 10:46 Assessment & Plan 71 year old female with past medical history as noted below and notable for favorable prognosis chronic lymphocytic leukemia presents with acute onset of abdominal pain # Acute abdominal pain with imaging suggestive of acute cholecystitis - Post Laparoscopic cholecystectomy with intraoperative cholangiogram on complicated by some leakage of gallstones and bile intraop requiring VITA drain placement. - Appreciate surgery consult. Will followup with recs - Continue with IV Zosyn started in ED - Supportive care including IV fluid and IV Morphine prn for pain control - Continue with VITA drain # Acute mild transaminitis, not present on admission. - Likely due to issues noted above - Repeat labs in AM # Diabetes mellitus type II, Insulin dependent - Continue with home dose Lantus - ISS while inpatient - HgA1C 6.4 # History of Hypertension. Poorly controlled - Continue with home meds - Continue with pain control # Acute kidney injury, present on admission. - Resolved with IV fluids. - Avoid nephrotoxic meds # Chronic lymphocytic leukemia with 13 q deletion and indolent course. Presumed stable - She has associate leukocytosis which is chronic - Further followup as outpatient Dispo: 1-2 days GI Prophylaxis: Proton Pump Inhibitor VTE Prophylaxis: Sub-Q Heparin (Unfractionated) VTE Mechanical Devices: Intermittant Pneumatic CD Resuscitation Status: Limited Interventions (OK to resuscitate but do NOT intubate. Discussed and verified with the patient) Jorge Malloy Dec 04, 2016 11:19
--- NOTE | 2016-12-04 15:46 | NUR ---
Pain/Mobility Patient pain is well manage with tylenol 650 mg Q 4H, able to ambulate around the unit twice with no difficulty. Eating and drinking well. VITA drain in place, output recorded. No further complaints at this time. Daughter visited for an extended time, patient very pleasant. Will continue to monitor.
[2016-12-04 16:42] VITALS: BP 129/71; PULSE 61; RESP 16; O2SAT 93
[2016-12-04 20:39] VITALS: BP 128/69; PULSE 63; RESP 16; O2SAT 98
[2016-12-04] MEDS: Insulin GLARgine 100 Unit/mL Syringe SUBQ SCH (22:04)
[2016-12-05] MEDS: Piperacillin-Tazo 3.375 Gm Inj 3.375 GM in Dextrose 5% Minibag Plus 50 ML IV SCH ×3 (00:30→17:01)
[2016-12-05] MEDS: Heparin 5,000 Unit/mL Inj SUBQ SCH ×3 (00:31→17:07)
--- NOTE | 2016-12-05 03:22 | NUR ---
Pain/activity Pt reporting pain up to 7/10 and continues to take the scheduled Tylenol q4 hrs. Pt reports this to be helpful and currently rating pain minimal 3/10. Lap sites x4 are CDI, VITA draining minimal serosang output. Pt up to BR independent and steady on feet. Denies nausea.
[2016-12-05 04:17] VITALS: BP 131/64; PULSE 57; RESP 16; O2SAT 92
[2016-12-05 06:30] LABS: Mean Corpuscular Hemoglobin 30.3 pg (27.0-35.0); Mean Corpuscular Volume 94.4 fL (81-100)
[2016-12-05 08:06] VITALS: BP 151/73; PULSE 63; RESP 16; O2SAT 96
[2016-12-05] MEDS: Diltiazem CD 240 mg ER24 Capsule PO SCH ×2 (08:17→20:49)
[2016-12-05] MEDS: Insulin LISPRO Low-Dose Scale SUBQ SCH ×4 (08:24→21:03)
--- NOTE | 2016-12-05 11:09 | PCM.PNMED ---
Subjective Date of Service Dec 05, 2016 Subjective Denies any new issues/complaints. no nausea/vomiting Exam Vital Signs Vital Sign - Last Date Time Temp Pulse Resp B/P Pulse Ox O2 Delivery O2 Flow Rate FiO2 12/05/16 08:06 36.9 63 16 151/73 96 Room Air 12/03/16 18:06 6 Intake and Output 12/04/16 12/04/16 12/05/16 Cumulative From/Thru 15:00 23:00 07:00 12/03/16 02:19 - 12/05/16 05:54 Intake Total 1206 ml 715 ml 4550 ml Output Total 965 ml 1150 ml 2680 ml Balance 241 ml -435 ml 1870 ml Intake Oral 1000 ml 400 ml 1950 ml IV Total 206 ml 315 ml 2600 ml Output Urine Total 925 ml 1120 ml 2495 ml Drainage Total 40 ml 30 ml 125 ml Estimated Blood Loss 60 ml # Bowel Movements 0 0 0 Exam General: Alert, Cooperative, No Acute Distress Head: Normal Eyes: Scleral Anicteric Nose: Mucous Membr Moist/[place] Mouth: Mucous Membr Moist/[place] Neck: Supple Chest & Lungs: Chest Wall Normal, Clear to auscultation bilat Cardiovascular: Regular Rate/Rhythm Pulses: NL DP, PT Abdomen: Tender , Non-distended, Normoactive bowel tones, Soft, VITA drain in place Extremities: No cyanosis/clubbing/edma bilat Neurological: Grossly Neurologically Intact, Cranial Nerves 2-12 Intact, Normal Speech Psych: Calm, appropriate IVs and Medications Medications Reviewed: Medications were reviewed in detail Lab and Diagnostics Result Diagram: 12/05/16 0540 12/05/16 0540 X-Rays, CTs and MRIs Date of Service: 12/03/16 0237 PROCEDURE: CT ABDOMEN AND PELVIS WITH CONTRAST ([id number]) IMPRESSION: 1. Lobulated gallbladder with areas of mild wall thickening and faintly visible stones. In addition, there is a mild prominence of extrahepatic biliary dilation measuring approximately 14 mm. No definitive source of obstruction is identified. However, further evaluation with ultrasound/MRCP is recommended, as cholecystitis and/or choledocholithiasis cannot be excluded. Dictated by: Shawanda Chowdhury M.D. on 12/03/2016 at 11:51 Approved by: Shawanda Chowdhury M.D. on 12/03/2016 at 11:58 Additional Diagnostics Date of Service: 12/03/16 0502 PROCEDURE: MR ABDOMEN MRCP IMPRESSION: 1. Cholelithiasis with evidence of cholecystitis. 2. Findings suggestive of a small distal common bile duct choledocholith associated with biliary ductal dilatation. Confirmation with ERCP or intraoperative cholangiography is recommended. 3. Findings discussed with Dr. Malloy 12.03.16 at 1045 hrs. Dictated by: Eloisa Echeverria M.D. on 12/03/2016 at 10:35 Approved by: Eloisa Echeverria M.D. on 12/03/2016 at 10:46 Assessment & Plan 71 year old female with past medical history as noted below and notable for favorable prognosis chronic lymphocytic leukemia presents with acute onset of abdominal pain # Acute abdominal pain with imaging suggestive of acute cholecystitis, present on admission. - Post Laparoscopic cholecystectomy with intraoperative cholangiogram on complicated by some leakage of gallstones and bile intraop requiring VITA drain placement. - Appreciate surgery consult. Will followup with recs - Continue with IV Zosyn started in ED for one more day - Supportive care including IV fluid and IV Morphine prn for pain control # Acute mild transaminitis, not present on admission. Improving - Likely due to issues noted above - Repeat labs in AM # Diabetes mellitus type II, Insulin dependent - Continue with home dose Lantus - ISS while inpatient - HgA1C 6.4 # History of Hypertension. Poorly controlled - Continue with home meds - Continue with pain control # Acute kidney injury, present on admission. - Resolved with IV fluids. - Avoid nephrotoxic meds # Chronic lymphocytic leukemia with 13 q deletion and indolent course. Presumed stable - She has associate leukocytosis which is chronic - Further followup as outpatient Dispo: Likely home tomorrow pending one more day of Abx and repeat labs in AM ( per surgery recs) GI Prophylaxis: Proton Pump Inhibitor VTE Prophylaxis: Sub-Q Heparin (Unfractionated) VTE Mechanical Devices: Intermittant Pneumatic CD Resuscitation Status: Limited Interventions (OK to resuscitate but do NOT intubate. Discussed and verified with the patient) Jorge Malloy Dec 05, 2016 11:09
--- NOTE | 2016-12-05 11:13 | PROG NOTE ---
[address] [address] PROGRESS NOTE PATIENT: MABLE VARELA : 1945 MR#: [id number] ADMIT: 12/03/2016 JOB ID: [id number] DATE: 12/05/2016 SUBJECTIVE: Postop day two laparoscopic cholecystectomy. Her liver function tests continue to normalize. OBJECTIVE: She feels well. Her Corey-Moran drain is serous. She is tolerating p.o. Incisions are in good shape. Her white count is down to 17 which is more or less her baseline given her CLL. IMPRESSION AND PLAN: She is doing well. I will defer to GI regarding any further action regarding her common duct stone, but I am inclined to leave it alone as we are not even certain that she does have one. I would like to see her continue on her antibiotics for 48 hours postoperatively due to the amount of inflammation in the gallbladder bed, spillage of bile, and the fact that her CLL likely leaves her relatively immune compromised. If he remains stable over the next 24 hours, I think she can likely go home without her drain.
--- NOTE | 2016-12-05 12:00 | NUR ---
Transfer from [facility] RM 1029 to [facility] Rm 1026/Pain Pt transferred from Rm 1029 to Rm 1026 with all personal belongings; amb w/SBA for lines; tolerated well. C/O abdominal pain after 8, "scared to take PO Roxicodone for pain or anything stronger than Tylenol because I don't want to get hooked on it." Rn explained it to be standard dosage and that she would not be on pain medication long enough to "get hooked" to which pt agreed and tried 1 PO Roxicodone. Pt states relief pain down to 2/10 and very tolerable. Care ongoing.
[2016-12-05 12:25] VITALS: BP 145/68; PULSE 59; RESP 15; O2SAT 90
[2016-12-05 19:59] VITALS: BP 152/62; PULSE 51; RESP 16; O2SAT 93
[2016-12-05] MEDS: Insulin GLARgine 100 Unit/mL Syringe SUBQ SCH (20:49)
[2016-12-06] MEDS: Heparin 5,000 Unit/mL Inj SUBQ SCH ×2 (00:59→08:36)
--- NOTE | 2016-12-06 02:16 | NUR ---
Pain/Bowel Patient rating abd pain a 6/10 at HS. Requested Oxycodone 5mg PO. Results effective- upon reassessment, patient states pain is "much better". Also receiving scheduled Tylenol 650mg PO. Requesting to hold off on waking up for 0400 dose and she will ask for it when she's awake and needs it. Patient states she's passing a lot of gas, but has no had a BM since Friday. Requesting one Senna 8.6mg PO. Given with HS medications.
[2016-12-06 05:22] VITALS: BP 148/74; PULSE 61; RESP 16; O2SAT 96
[2016-12-06 07:31] LABS: Mean Corpuscular Hemoglobin 29.9 pg (27.0-35.0); Mean Corpuscular Volume 93.4 fL (81-100)
[2016-12-06 08:15] VITALS: BP 168/75; PULSE 64; RESP 16; O2SAT 94
[2016-12-06] MEDS: Diltiazem CD 240 mg ER24 Capsule PO SCH (08:31)
[2016-12-06] MEDS: Insulin LISPRO Low-Dose Scale SUBQ SCH ×2 (08:35→11:28)
--- NOTE | 2016-12-06 08:40 | PCM.PNSURG ---
Subjective Date of Service: Dec 06, 2016 Date of Service: Dec 06, 2016 Visit Information: Reason for Visit Cholecystitis Biliary Duct Dilation Surgery/Surgery Date LAP MARIUSZ 12/03/16 Post-Op Day # 3 s/p lap mariusz with ioc Date of Admission: Dec 03, 2016 at 05:55 Hospital Day # Subjective: Patient reports able to tolerate diet. Feeling improved pain control. No nausea or vomiting. Ambulating. Hoping for d/c soon. Postop General: No Complaints, No Shortness of Breath, No Chest Pain Gastrointestinal: Good Appetite, No N/V Pain Management: PO, Good Pain Control Postop Activity: Ambulating Independently Objective Objective Pleasant conversive elderly female in no apparent distress. Afebrile and reducing leukocytosis [place] [id number]. LFT's improving. VITA drain lightening and lessening. Vital Sign- Last 8 Hours Date Time Temp Pulse Resp B/P Pulse Ox O2 Delivery O2 Flow Rate FiO2 12/06/16 08:15 36.7 64 16 168/75 94 Room Air 12/06/16 05:22 36.3 61 16 148/74 96 Room Air Intake and Output- Last 8 Hour 12/06/16 Cumulative From/Thru 07:00 12/03/16 02:19 - 12/06/16 06:04 Intake Total 160 ml 5674 ml Output Total 680 ml 3990 ml Balance -520 ml 1684 ml Intake Oral 160 ml 2910 ml IV Total 2764 ml Output Urine Total 650 ml 3745 ml Drainage Total 30 ml 185 ml Estimated Blood Loss 60 ml # Bowel Movements 0 0 General: Alert, Cooperative, No Acute Distress Lungs: Clear to Auscultation Heart: Regular Rate/Rhythm Abdomen: Soft, Appropriately tender, Non-distended, Normoactive bowel tones SURGICAL WOUND : Wound General Appearence: Steri Strips, Intact, Well Approximated, Incision Healing, No Discharge, No Inflammatory Changes Dressing & Drainage Status: Minimal Wound Drainage Type: VITA Drain #1 (30ml out light serosang) Extremities: Distal Pulses Palpable, Warm Result Diagram: 12/06/16 0700 12/06/16 0700 Lab & Micro Results: T. bili 0.3 AST 18 ALT 33 All improving Assessment & Plan Impression Stable postoperative course s/p lap mariusz for cholecystitis. WBC trending slowly down but probable near baseline high 2/2 CLL Likely sludge not stone causing temp bump in LFT's normalizing now Postop pain and function improved. Pos flatus but no bm yet with active BS's VITA output decreased and clearing. Problems: (1) Diabetes Status: Acute ICD Code: E11.9 (2) CLL (chronic lymphocytic leukemia) Status: Acute ICD Code: C91.10 Plan stable postoperative course s/p lap mariusz for cholecystitis Will remove VITA Will approve discharge from surgery standpoint Will approve d/c'ing abx Follow up in Gen surg clinic in 2-3 weeks with DONALD. VTE Prophylaxis: Sub-Q Heparin (Unfractionated) Resuscitation Status: CPR: Attempt Resuscitation (OK to resuscitate but do NOT intubate. Discussed and verified with the patient) Jim Irizarry PA-C Dec 06, 2016 08:40
--- NOTE | 2016-12-06 10:50 | PCM.DIMED ---
Discharge Instructions Date of Service Dec 06, 2016 Dates of Hospitalization Dec 03, 2016 at 05:55 Discharge Diagnosis Discharge Diagnosis # acute cholecystitis and underwent cholecystectomy, present on admission.resolved # Acute mild transaminitis, not present on admission. Improving - Likely due to issues noted above # Diabetes mellitus type II, Insulin dependent # History of Hypertension. Poorly controlled # Acute kidney injury, present on admission. Resolved # Chronic lymphocytic leukemia with 13 q deletion and indolent course. Presumed stable Diet Discharge Diet: Diabetic Activity Discharge Activity: Limited until seen by PCP Call your provider Call your provider for: Fever or Chills, Shortness of breath, Bleeding, Chest pain, Vomitting, Excessive diarrhea, Weakness (unilateral) Patient Instructions Patient Instructions You were hospitalized due to abdominal pain.You were found to have cholecystitis and underwent cholecystectomy.You have been treated with IV antibiotics. No need for antibiotics upon discharge. Please take pain medications as needed. Please continue all your other medications as usual. Follow-up Provider: Juani Desai MD Follow-up with PCP in: 1 week Provider: Alexander Frye MD Follow-up in: 2 weeks David Gold MD Dec 06, 2016 10:50
[2016-12-06] MEDS ORDERED: OXYC-530 PO (10:51)
--- NOTE | 2016-12-06 11:32 | PATH ---
SURGICAL PATHOLOGY Attending Physician:Alexander Frye MD CASE STATUS: Signed Out PATIENT NAME: MABLE VARELA PID: [id number] : 1945 DATE COLLECTED:12/03/2016 00:00 SPECIMEN: Gallbladder CLINICAL HISTORY: CHOLECYSTITIS, BILIARY DUCT DILATION 1). GALLBLADDER FINAL DIAGNOSIS: Gallbladder, Cholecystectomy: Acute cholecystitis. Cholelithiasis. ICD10: K80.0 GROSS DESCRIPTION: The specimen is received in formalin, labeled with the patient's name, sublabeled as gallbladder, and consists of an opened gallbladder (length-5.6 cm, diameter-2.2 cm) with a patent cystic duct. No lymph nodes are identified. The serosa is montez-yellow smooth and shiny. The mucosa is brown-green smooth and flat. The wall is up to 0.4 cm thick. The contents are also submitted and consist of multiple yellow-orange solid firm smooth calculi (2.8 x 1.7 x 0.6 cm in aggregate, ranging 0.2 x 0.2 x 0.1 cm-0.7 x 0.6 x 0.5 cm) with esme crystalline cut surfaces. Multiple calculi are encapsulated within the fundus. No nodules, masses or lesions are identified. Section code: (A) gallbladder, cystic duct resection margin, 2 serial sections from the body; (B) 2 longitudinal sections from the fundus. 12/04/16 ICD-9 CODES: CPT CODES: 1: 14304 Electronically Signed Out Gage Madrigal MD, Ph.D. [facility] Pathology [facility] [address], [place] [address] Technical component performed at [facility], [facility] [address], [place], [address]
--- NOTE | 2016-12-06 11:52 | NUR ---
DISCHARGE Patient discharged at 1130, left with daughter who will drive her home. Patient denies pain, nausea, and shortness of breath. Medications and new Rx reviewed and patient verbalized understanding. Care notes on lap coli provided, IV catheter removed intact, personal belongings accounted for and returned to patient. Follow up appointments and when to call situations reviewed, patient given extra dressing materials and told to call if she has any concerns.
--- NOTE | 2016-12-06 14:54 | NUR ---
Social Work: Discharge/Multidisciplinary Rounds D: EMR reviewed. Pt is on day 3 of hospitalization. Pt discussed in multidisciplinary rounds, and is medically stable for discharge. No SW needs identified. Pt to discharge home with family to transport via POV. No discharge needs identified. A: Pt who is independent at baseline. P: Pt to discharge home today with family to transport via POV. No discharge needs identified. No MD orders received. LINDA Pittman
--- NOTE | 2016-12-06 16:51 | PCM.DC.MED ---
Discharge Summary Date of Service Dec 06, 2016 Dates of Hospitalization Date of Hospital Admission Dec 03, 2016 at 05:55 Date of Discharge: Dec 06, 2016 Providers: Admitting Physician: Ramon Romano MD Primary Care Physician: Juani Desai MD Attending Physician: Jorge Malloy Diagnosis at Time of Discharge Diagnosis at Time of Discharge # acute cholecystitis and underwent cholecystectomy, present on admission.resolved # Acute mild transaminitis, not present on admission. Improving - Likely due to issues noted above # Diabetes mellitus type II, Insulin dependent # History of Hypertension. Poorly controlled # Acute kidney injury, present on admission. Resolved # Chronic lymphocytic leukemia with 13 q deletion and indolent course. Presumed stable Consultations surgery dr Frye Procedures XRay, CTs & MRIs Date of Service: 12/03/16 0237 PROCEDURE: CT ABDOMEN AND PELVIS WITH CONTRAST ([id number]) IMPRESSION: 1. Lobulated gallbladder with areas of mild wall thickening and faintly visible stones. In addition, there is a mild prominence of extrahepatic biliary dilation measuring approximately 14 mm. No definitive source of obstruction is identified. However, further evaluation with ultrasound/MRCP is recommended, as cholecystitis and/or choledocholithiasis cannot be excluded. Dictated by: Shawanda Chowdhury M.D. on 12/03/2016 at 11:51 Approved by: Shawanda Chowdhury M.D. on 12/03/2016 at 11:58 Other Diagnostics Date of Service: 12/03/16 0502 PROCEDURE: MR ABDOMEN MRCP IMPRESSION: 1. Cholelithiasis with evidence of cholecystitis. 2. Findings suggestive of a small distal common bile duct choledocholith associated with biliary ductal dilatation. Confirmation with ERCP or intraoperative cholangiography is recommended. 3. Findings discussed with Dr. Malloy 12.03.16 at 1045 hrs. Dictated by: Eloisa Echeverria M.D. on 12/03/2016 at 10:35 Approved by: Eloisa Echeverria M.D. on 12/03/2016 at 10:46 Brief History per HPI 71 year old female with past medical history as noted below and notable for favorable prognosis chronic lymphocytic leukemia presents with acute onset of abdominal pain since about 11PM, about 6 hours after her dinner, last night. She denies any associated nausea, vomiting, fever, or chills with this. She has been having some loose stools in the past couple of days that has been occasionally melanotic appearing. The pain across her abdomen and to the right upper flank. She reports having lost about 20-30 lbs over the past 3 years and review of systems is otherwise negative. In the ED she has received a dose of IV Zosyn Hospital Course 71 year old female with past medical history as noted below and notable for favorable prognosis chronic lymphocytic leukemia presents with acute onset of abdominal pain # Acute abdominal pain with imaging suggestive of acute cholecystitis, present on admission. - Post Laparoscopic cholecystectomy with intraoperative cholangiogram on complicated by some leakage of gallstones and bile intraop requiring VITA drain placement. Drain removed on day of discharge. - Appreciate surgery team -Dictated with IV Zosyn. Discontinued upon discharge. - Treated with supportive care including IV fluid and IV Morphine prn for pain control # Acute mild transaminitis, not present on admission. Improving - Likely due to issues noted above # Diabetes mellitus type II, Insulin dependent - Continue with home dose Lantus - ISS while inpatient - HgA1C 6.4 # History of Hypertension. Poorly controlled - Continue with home meds - Continue with pain control # Acute kidney injury, present on admission. Resolved - initial creatinine 1.23 - Resolved with IV fluids. - Avoid nephrotoxic meds # Chronic lymphocytic leukemia with 13 q deletion and indolent course. Presumed stable - She has associate leukocytosis which is chronic - Further followup as outpatient Discharged home Condition on discharge stable Exam Vital Signs (Last) Date Time Temp Pulse Resp B/P Pulse Ox O2 Delivery O2 Flow Rate FiO2 12/06/16 08:15 36.7 64 16 168/75 94 Room Air 12/03/16 18:06 6 Exam General: Alert, Cooperative, No Acute Distress Head: Normal Eyes: Scleral Anicteric Nose: Mucous Membr Moist/[place] Mouth: Mucous Membr Moist/[place] Neck: Supple Chest & Lungs: Chest Wall Normal, Clear to auscultation bilat Cardiovascular: Regular Rate/Rhythm Pulses: NL DP, PT Abdomen: Tender , Non-distended, Normoactive bowel tones, Soft, VITA drain removed today. Extremities: No cyanosis/clubbing/edma bilat Neurological: Grossly Neurologically Intact, Cranial Nerves 2-12 Intact, Normal Speech Psych: Calm, appropriate Test 12/03/16 02:20 12/03/16 02:32 12/03/16 06:20 12/03/16 13:08 Band Neutrophils % 2% (1-5) Hematology Comments Prothrombin Time 10.0sec (8.1-12.5) Prothromb Time International Ratio 0.94ratio Hemoglobin A1c 6.4% (4.8-5.6) Magnesium Level 1.8mg/dL (1.6-2.6) Lactic Acid Level 1.2mmol/L (0.4-2.0) Urine Color Straw (YELLOW) Urine Appearance Hazy (CLEAR,HAZY) Urine pH 6.0 (5.0-8.0) Urine Specific [place] 1.020 (1.003-1.035) Urine Protein 100mg/dL (NEG,TRACE) Urine Glucose (UA) Negativemg/dL (NEGATIVE) Urine Ketones 15mg/dL (NEGATIVE) Urine Occult Blood Trace (NEGATIVE) Urine Nitrite Negative (NEGATIVE) Urine Bilirubin Negative (NEGATIVE) Urine Urobilinogen Normalmg/dL (NORMAL) Urine Leukocyte Esterase Trace (NEGATIVE) Urine RBC 0-2/hpf (0-2) Urine WBC 6-10/hpf (0-5) Urine Epithelial Cells Occasional/hpf (NONE-MOD) Urine Crystals None seen (NONE SEEN) Urine Bacteria Many/hpf (NONE-FEW) Urine Hyaline Casts None/lpf (NONE) Urine Granular Casts None seen (NONE SEEN) Urine Waxy Casts None seen (NONE SEEN) Urine Red Blood Cell Casts None seen (NONE SEEN) Urine White Blood Cell Casts None seen (NONE SEEN) Urine Mucus None seen (None Seen) Urine Trichomonas None seen (NONE SEEN) Urine Yeast None (NONE SEEN) Urinalysis Comment None Urine Culture Reflexed Indicated Lipase 28U/L (13-60) Test 12/04/16 06:35 12/04/16 18:02 12/06/16 07:00 Neutrophils (%) (Auto) 63.3% (40-74) Lymphocytes (%) (Auto) 31.5% (14-46) Monocytes (%) (Auto) 4.8% (4-12) Eosinophils (%) (Auto) 0% (0-5) Basophils (%) (Auto) 0.1% (0-3) Hold Purple Top Tube Received (Received) Hold [place] Top Tube Received (Received) White Blood Count 16.1th/mm3 (3.8-10.1) Red Blood Count 4.11mil/mm3 (3.90-5.20) Hemoglobin 12.3g/dL (12.0-15.6) Hematocrit 38.4% (35.0-46.0) Mean Corpuscular Volume 93.4fL (81-100) Mean Corpuscular Hemoglobin 29.9pg (27.0-35.0) Mean Corpuscular Hemoglobin Concent 32.0% (32.0-37.0) Red Cell Distribution Width 13.9% (12.3-15.4) Platelet Count 225bil/L (150-400) Sodium Level 136mEq/L (134-144) Potassium Level 3.7mEq/L (3.5-5.2) Chloride Level 100mEq/L (97-108) Carbon Dioxide Level 23mmol/L (18-29) Blood Urea Nitrogen 13mg/dL (8-27) Creatinine 0.71mg/dL (0.57-1.00) Estimat Glomerular Filtration Rate 116mL/min (>59) Glucose Level 181mg/dL (60-99) Calcium Level 9.0mg/dL (8.5-10.1) Total Bilirubin 0.3mg/dL (0.0-1.2) Aspartate Amino Transf (AST/SGOT) 18U/L (0-50) Alanine Aminotransferase (ALT/SGPT) 33U/L (0-32) Alkaline Phosphatase 65U/L (25-165) Total Protein 5.7g/dL (6.4-8.4) Albumin 3.3g/dL (3.4-5.0) Discharge Medications Discharge Medications Aspirin (Aspirin) 81 Mg Tablet 81 MG PO DAILY (Reported) Cholecalciferol (Vitamin D3) (Vitamin D3) 10,000 Unit Tablet 10,000 UNIT PO DAILY (Reported) Diltiazem ER (Diltiazem ER) 240 Mg Cap.er.24h 240 MG PO BID (Reported) Glipizide (Glipizide) 5 Mg Tablet 5 MG PO AM (Reported) Insulin Glargine (Lantus U100 Insulin Vial) 100 Unit/Ml Vial 4 UNIT SUBQ QPM- INSULIN (Reported) Insulin Lispro (HumaLOG U100 Insulin Pen) 100 Unit/1 Ml Insuln.pen 4 UNIT SUBQ TIDAC (Reported) Blood Sugar Lispro Correction <151 0 units 151-175 1 unit 176-200 2 units 201-225 3 units 226-250 4 units 251-275 5 units 276-300 6 units 301-325 7 units 326-350 8 units 351-375 9 units 376-400 10 units >400 12 units Check blood sugars before meals and at bedtime. Use correction factor only before meals. Losartan Potassium (Losartan Potassium) 50 Mg Tablet 50 MG PO DAILY (Reported) Metformin (Metformin) 500 Mg Tablet 500 MG PO BID (Reported) Vit C/Vit E/Lutein/Min/[place]-3 (Ocuvite Softgel) 1 Each Capsule 1 EACH PO DAILY (Reported) As needed Ibuprofen (Ibuprofen) 800 Mg Tablet 800 MG PO PRN PRN PRN For Pain (Reported) oxyCODONE (oxyCODONE) 5 Mg Tablet 5 MG PO Q4H PRN PRN For Moderate Pain Prescribed by: JEFF COTO MD Followup Plan Disposition: Home Discharge Diet: Diabetic Discharge Activity: Limited until seen by PCP Patient Instructions You were hospitalized due to abdominal pain.You were found to have cholecystitis and underwent cholecystectomy.You have been treated with IV antibiotics. No need for antibiotics upon discharge. Please take pain medications as needed. Please continue all your other medications as usual. Follow-up Provider: Juani Desai MD Follow-up with PCP in: 1 week Provider: Alexander Frye MD Follow-up in: 2 weeks Time spent 35 minutes reviewing chart and coordinating discharge. answered all questions copies to: Alexander Frye MD; Juani Desai MD, Melaku MD Dec 06, 2016 16:51
== END 2016-12-06 11:30 | disposition home or self-care (01) | DRG 418 ==
LOC: SED 02:12 → OBSVTOIN 05:55 → OSC 05:55
PROVIDERS: ADMIT Hospitalist; ATTEND Internal Medicine
PROC: BF131ZZ Fluoroscopy of Gallbladder and Bile Ducts using Low Osmolar Contrast (ICD-10-PCS; 2016-12-03)
PROC: 0FT44ZZ Resection of Gallbladder, Percutaneous Endoscopic Approach (ICD-10-PCS; principal; 2016-12-03 15:15)
DX: K80.40 Calculus of bile duct with cholecystitis, unspecified, without obstruction (principal); N17.9 Acute kidney failure, unspecified; K91.81 Other intraoperative complications of digestive system; C91.10 Chronic lymphocytic leukemia of B-cell type not having achieved remission; E11.9 Type 2 diabetes mellitus without complications; Z79.4 Long term (current) use of insulin; I10 Essential (primary) hypertension